=== PATIENT | female | born 1950 | race Caucasian/White ===

== ENCOUNTER 2022-01-16 01:36 | Outpatient (CLI) | payer MEDICARE, SELFPAY ==
[2022-01-16 14:28] LABS: Absolute Basophil Count 0.02 10^3/uL (0.0-0.2); Absolute Eosinophil Count 0.03 10^3/uL (0.0-0.7); Absolute Neutrophil Count 8.17 10^3/uL (1.2-6.7); Basophils % 0.2; Eosinophils % 0.3; HCT 23.6 % (36.0-46.0); HGB 7.5 g/dL (11.2-15.7); Immature Grans % 0.9; Lymphocytes % 16.3; MCH 29.4 pg (27.0-33.0); MCHC 31.8 % (32.0-36.0); MCV 93 fL (80-95); MPV 9.4 fL (8.0-11.0); Monocytes % 8.2; Neutrophils % 74.1; Platelet Count 254 10^3/uL (130-400); RBC 2.55 10^6/uL (3.93-5.22); RDW 16.2 % (11.7-14.6); RDW-SD 55.1 fL; WBC 11.02 10^3/uL (4.4-10.8)
[2022-01-16 14:45] LABS: Diff Comment Diff Reviewed; RBC Morphology Normal
== END 2022-01-16 01:37 | disposition home or self-care (01) ==
PROVIDERS: Visit Provider Nurse Practitioner Adult Health
DX: C90.00 Multiple myeloma not having achieved remission (principal)
CPT/HCPCS: 36415; 85025

== ENCOUNTER 2022-01-29 03:52 | Outpatient (CLI) | payer MEDICARE, SELFPAY ==
[2022-01-29 10:17] LABS: Abs Immature Grans 0.06 10^3/uL (0.0-0.06); Absolute Basophil Count 0.03 10^3/uL (0.0-0.2); Absolute Eosinophil Count 0.15 10^3/uL (0.0-0.7); Absolute Lymphocyte Count 0.95 10^3/uL (1.2-3.4); Absolute Monocyte Count 0.77 10^3/uL (0.1-0.8); Absolute Neutrophil Count 5.88 10^3/uL (1.2-6.7); Basophils % 0.4; Eosinophils % 1.9; Immature Grans % 0.8; Lymphocytes % 12.1; MCH 30.2 pg (27.0-33.0); MCHC 32.5 % (32.0-36.0); MCV 93 fL (80-95); MPV 9.2 fL (8.0-11.0); Monocytes % 9.8; RBC 2.15 10^6/uL (3.93-5.22); RDW 15.2 % (11.7-14.6); RDW-SD 51.3 fL; WBC 7.84 10^3/uL (4.4-10.8)
[2022-01-29 10:47] LABS: Platelet Count 281 10^3/uL (130-400)
[2022-01-29 10:48] LABS: Basophilic Stippling Present; Diff Comment Diff Reviewed; Hypochromasia 3+
[2022-01-29 10:50] LABS: HGB 6.5 g/dL (11.2-15.7)
== END 2022-01-29 03:53 | disposition home or self-care (01) ==
LOC: LBO 03:52
PROVIDERS: Visit Provider Internal Medicine Hematology & Oncology
DX: C90.00 Multiple myeloma not having achieved remission (principal)
CPT/HCPCS: 36415; 85025

== ENCOUNTER 2022-02-05 03:17 | Outpatient (CLI) | payer MEDICARE, SELFPAY | END 2022-02-05 03:18 | disposition home or self-care (01) | LOC: LBO 03:17 | PROVIDERS: Visit Provider Internal Medicine Hematology & Oncology | DX: R69 Illness, unspecified (principal) ==

== ENCOUNTER 2022-02-12 02:23 | Outpatient (CLI) | payer MEDICARE, SELFPAY ==
[2022-02-12 10:37] LABS: Abs Immature Grans 0.36 10^3/uL (0.0-0.06); Absolute Basophil Count 0.05 10^3/uL (0.0-0.2); Absolute Monocyte Count 0.48 10^3/uL (0.1-0.8); Absolute Neutrophil Count 5.33 10^3/uL (1.2-6.7); Basophils % 0.7; Eosinophils % 2.7; HCT 29.2 % (36.0-46.0); HGB 9.2 g/dL (11.2-15.7); Immature Grans % 4.9; Lymphocytes % 13.5; MCH 30.4 pg (27.0-33.0); MCHC 31.5 % (32.0-36.0); MCV 96 fL (80-95); MPV 10.2 fL (8.0-11.0); Monocytes % 6.5; Neutrophils % 71.7; Platelet Count 218 10^3/uL (130-400); RBC 3.03 10^6/uL (3.93-5.22); RDW 14.4 % (11.7-14.6); RDW-SD 50.5 fL; WBC 7.42 10^3/uL (4.4-10.8)
== END 2022-02-12 02:24 | disposition home or self-care (01) ==
LOC: LBO 02:23
PROVIDERS: Nurse Practitioner Adult Health; Visit Provider Internal Medicine Hematology & Oncology
DX: C90.00 Multiple myeloma not having achieved remission (principal)
CPT/HCPCS: 36415; 85025

== ENCOUNTER 2022-02-26 02:19 | Outpatient (CLI) | payer MEDICARE, SELFPAY ==
[2022-02-26 10:39] LABS: Abs Immature Grans 0.03 10^3/uL (0.0-0.06); Absolute Basophil Count 0.05 10^3/uL (0.0-0.2); Absolute Eosinophil Count 0.17 10^3/uL (0.0-0.7); Absolute Lymphocyte Count 1.13 10^3/uL (1.2-3.4); Absolute Monocyte Count 0.79 10^3/uL (0.1-0.8); Absolute Neutrophil Count 2.76 10^3/uL (1.2-6.7); Eosinophils % 3.4; HCT 25.6 % (36.0-46.0); HGB 8.3 g/dL (11.2-15.7); Immature Grans % 0.6; Lymphocytes % 22.9; MCH 31.2 pg (27.0-33.0); MCHC 32.4 % (32.0-36.0); MCV 96 fL (80-95); MPV 9.7 fL (8.0-11.0); Neutrophils % 56.1; Platelet Count 284 10^3/uL (130-400); RBC 2.66 10^6/uL (3.93-5.22); RDW-SD 52.2 fL; WBC 4.93 10^3/uL (4.4-10.8)
[2022-02-26 11:16] LABS: ALT 62 U/L (14-59); AST 23 U/L (15-37); Albumin 3.5 g/dL (3.4-5.0); Alkaline Phosphatase 122 U/L (46-116); Anion Gap 6.7 mmol/L (3-11); BUN 18 mg/dL (7-18); Bilirubin, Total 0.3 mg/dL (0.2-1.0); CO2 28.3 mmol/L (21.0-32.0); CREATININE 1.2 mg/dL (0.55-1.02); Calcium 8.7 mg/dL (8.5-10.1); Chloride 101 mmol/L (98-107); Estimated GFR 44.04 (mL/min/1.73m2); Glucose 95 mg/dL (74-106); Potassium 4.2 mmol/L (3.5-5.1); Sodium 136 mmol/L (136-145); Total Protein 6.7 g/dL (6.4-8.2)
[2022-02-27 09:31] LABS: IgA 398 mg/dL (85-499); IgG 323 mg/dL (610-1,616); IgM 48 mg/dL (35-242); Kappa Free Light Chain 18.32 mg/dL (0.33-1.94); Lambda Free Light Chain 1.37 mg/dL (0.57-2.63)
[2022-02-27 16:16] LABS: Albumin 60.5 % (55.8-66.1); Albumin g/dL 3.7 g/dL (3.6-5.2); Comment (See Note); Total Protein 6.1 g/dL (6.3-8.2)
[2022-03-04 10:31] LABS: Immunotyping, Serum (See Note)
== END 2022-02-26 02:20 | disposition home or self-care (01) ==
LOC: LBO 02:19
PROVIDERS: Visit Provider Internal Medicine Hematology & Oncology
DX: C90.00 Multiple myeloma not having achieved remission (principal)
CPT/HCPCS: 36415; 80053; 82784; 83883; 84165; 85025; 86320

== ENCOUNTER 2022-03-12 10:34 | Outpatient (CLI) | payer MEDICARE, SELFPAY ==
[2022-03-12 10:48] LABS: Abs Immature Grans 0.02 10^3/uL (0.0-0.06); Absolute Basophil Count 0.07 10^3/uL (0.0-0.2); Absolute Eosinophil Count 0.44 10^3/uL (0.0-0.7); Absolute Lymphocyte Count 0.77 10^3/uL (1.2-3.4); Absolute Monocyte Count 0.37 10^3/uL (0.1-0.8); Absolute Neutrophil Count 4.36 10^3/uL (1.2-6.7); Basophils % 1.2; Eosinophils % 7.3; HCT 32.5 % (36.0-46.0); HGB 10.4 g/dL (11.2-15.7); Immature Grans % 0.3; Lymphocytes % 12.8; MCH 30.9 pg (27.0-33.0); MCV 96 fL (80-95); MPV 10.3 fL (8.0-11.0); Monocytes % 6.1; Neutrophils % 72.3; Platelet Count 274 10^3/uL (130-400); RBC 3.37 10^6/uL (3.93-5.22); RDW 15.9 % (11.7-14.6); RDW-SD 56.8 fL; WBC 6.03 10^3/uL (4.4-10.8)
== END 2022-03-12 10:35 | disposition home or self-care (01) ==
LOC: LBO 10:35
PROVIDERS: Visit Provider Nurse Practitioner Adult Health
DX: C90.00 Multiple myeloma not having achieved remission (principal)
CPT/HCPCS: 36415; 85025

== ENCOUNTER 2022-03-19 02:51 | Outpatient (CLI) | payer MEDICARE, SELFPAY ==
[2022-03-19 11:09] LABS: Abs Immature Grans 0.02 10^3/uL (0.0-0.06); Absolute Basophil Count 0.06 10^3/uL (0.0-0.2); Absolute Eosinophil Count 0.29 10^3/uL (0.0-0.7); Absolute Lymphocyte Count 0.64 10^3/uL (1.2-3.4); Absolute Monocyte Count 0.37 10^3/uL (0.1-0.8); Absolute Neutrophil Count 2.19 10^3/uL (1.2-6.7); Basophils % 1.7; Eosinophils % 8.1; HCT 31.6 % (36.0-46.0); HGB 9.8 g/dL (11.2-15.7); Immature Grans % 0.6; Lymphocytes % 17.9; MCH 29.9 pg (27.0-33.0); MCV 96 fL (80-95); MPV 11.4 fL (8.0-11.0); Monocytes % 10.4; Neutrophils % 61.3; Platelet Count 195 10^3/uL (130-400); RBC 3.28 10^6/uL (3.93-5.22); RDW 15.6 % (11.7-14.6); RDW-SD 55.1 fL; WBC 3.57 10^3/uL (4.4-10.8)
[2022-03-19 11:23] LABS: ALT 24 U/L (14-59); AST 15 U/L (15-37); Albumin 3.3 g/dL (3.4-5.0); Alkaline Phosphatase 107 U/L (46-116); Anion Gap 6.1 mmol/L (3-11); BUN 19 mg/dL (7-18); Bilirubin, Total 0.4 mg/dL (0.2-1.0); CO2 26.9 mmol/L (21.0-32.0); Calcium 8.1 mg/dL (8.5-10.1); Chloride 102 mmol/L (98-107); Glucose 80 mg/dL (74-106); Potassium 3.9 mmol/L (3.5-5.1); Sodium 135 mmol/L (136-145); Total Protein 6.2 g/dL (6.4-8.2)
[2022-03-20 09:13] LABS: IgA 307 mg/dL (85-499); IgG 281 mg/dL (610-1,616); IgM 34 mg/dL (35-242); Kappa Free Light Chain 15.13 mg/dL (0.33-1.94); Lambda Free Light Chain 1.15 mg/dL (0.57-2.63)
[2022-03-20 11:50] LABS: Albumin 63.6 % (55.8-66.1); Albumin g/dL 3.6 g/dL (3.6-5.2); Comment (See Note); Monoclonal Spike 4.4 % (None Seen); Monoclonal Spike g/dL 0.2 g/dL (None Seen); Total Protein 5.6 g/dL (6.3-8.2)
== END 2022-03-19 02:52 | disposition home or self-care (01) ==
PROVIDERS: Visit Provider Nurse Practitioner Adult Health
DX: C90.00 Multiple myeloma not having achieved remission (principal)
CPT/HCPCS: 36415; 80053; 82784; 83883; 84165; 85025

== ENCOUNTER 2022-03-26 01:53 | Outpatient (CLI) | payer MEDICARE, SELFPAY ==
[2022-03-26 08:34] LABS: Abs Immature Grans 0.01 10^3/uL (0.0-0.06); Absolute Eosinophil Count 0.09 10^3/uL (0.0-0.7); Absolute Lymphocyte Count 1.15 10^3/uL (1.2-3.4); Absolute Monocyte Count 0.62 10^3/uL (0.1-0.8); Absolute Neutrophil Count 2.09 10^3/uL (1.2-6.7); Basophils % 2.5; Eosinophils % 2.2; HCT 33.7 % (36.0-46.0); HGB 10.7 g/dL (11.2-15.7); Immature Grans % 0.2; Lymphocytes % 28.3; MCH 30.1 pg (27.0-33.0); MCHC 31.8 % (32.0-36.0); MCV 95 fL (80-95); MPV 9.1 fL (8.0-11.0); Monocytes % 15.3; Neutrophils % 51.5; Platelet Count 343 10^3/uL (130-400); RBC 3.56 10^6/uL (3.93-5.22); RDW 14.9 % (11.7-14.6); RDW-SD 52.3 fL; WBC 4.06 10^3/uL (4.4-10.8)
[2022-03-26 08:49] LABS: ALT 23 U/L (14-59); AST 19 U/L (15-37); Albumin 3.6 g/dL (3.4-5.0); Alkaline Phosphatase 117 U/L (46-116); Anion Gap 6.5 mmol/L (3-11); BUN 19 mg/dL (7-18); Bilirubin, Total 0.3 mg/dL (0.2-1.0); CO2 29.5 mmol/L (21.0-32.0); CREATININE 1.1 mg/dL (0.55-1.02); Calcium 8.9 mg/dL (8.5-10.1); Chloride 102 mmol/L (98-107); Estimated GFR 48.55 (mL/min/1.73m2); Glucose 80 mg/dL (74-106); Potassium 4.1 mmol/L (3.5-5.1); Sodium 138 mmol/L (136-145); Total Protein 6.5 g/dL (6.4-8.2)
[2022-03-27 09:16] LABS: IgA 368 mg/dL (85-499); IgG 329 mg/dL (610-1,616); IgM 65 mg/dL (35-242); Kappa Free Light Chain 18.55 mg/dL (0.33-1.94); Lambda Free Light Chain 1.04 mg/dL (0.57-2.63)
[2022-03-27 13:08] LABS: Albumin 62.7 % (55.8-66.1); Albumin g/dL 3.7 g/dL (3.6-5.2); Comment (See Note); Total Protein 5.9 g/dL (6.3-8.2)
== END 2022-03-26 01:54 | disposition home or self-care (01) ==
LOC: LBO 01:53
PROVIDERS: Visit Provider Internal Medicine Hematology & Oncology
DX: C90.00 Multiple myeloma not having achieved remission (principal)
CPT/HCPCS: 36415; 80053; 82784; 83883; 84165; 85025

== ENCOUNTER 2022-04-02 04:05 | Outpatient (CLI) | payer MEDICARE, SELFPAY ==
[2022-04-02 10:30] LABS: Abs Immature Grans 0.04 10^3/uL (0.0-0.06); Absolute Basophil Count 0.07 10^3/uL (0.0-0.2); Absolute Lymphocyte Count 1.01 10^3/uL (1.2-3.4); Absolute Monocyte Count 0.34 10^3/uL (0.1-0.8); Absolute Neutrophil Count 3.53 10^3/uL (1.2-6.7); Basophils % 1.3; Eosinophils % 3.9; HCT 31.1 % (36.0-46.0); Immature Grans % 0.8; Lymphocytes % 19.5; MCH 30.4 pg (27.0-33.0); MCHC 32.2 % (32.0-36.0); MCV 95 fL (80-95); MPV 10.9 fL (8.0-11.0); Monocytes % 6.6; Neutrophils % 67.9; Platelet Count 256 10^3/uL (130-400); RBC 3.29 10^6/uL (3.93-5.22); RDW 15.5 % (11.7-14.6); RDW-SD 53.8 fL; WBC 5.19 10^3/uL (4.4-10.8)
[2022-04-02 10:45] LABS: ALT 23 U/L (14-59); AST 16 U/L (15-37); Albumin 3.3 g/dL (3.4-5.0); Alkaline Phosphatase 102 U/L (46-116); Anion Gap 7.7 mmol/L (3-11); BUN 19 mg/dL (7-18); Bilirubin, Total 0.3 mg/dL (0.2-1.0); CO2 28.3 mmol/L (21.0-32.0); CREATININE 1.1 mg/dL (0.55-1.02); Calcium 8.5 mg/dL (8.5-10.1); Chloride 102 mmol/L (98-107); Estimated GFR 48.55 (mL/min/1.73m2); Glucose 85 mg/dL (74-106); Sodium 138 mmol/L (136-145); Total Protein 6.6 g/dL (6.4-8.2)
[2022-04-03 09:45] LABS: IgA 351 mg/dL (85-499); IgG 310 mg/dL (610-1,616); IgM 49 mg/dL (35-242); Kappa Free Light Chain 17.82 mg/dL (0.33-1.94); Lambda Free Light Chain 0.99 mg/dL (0.57-2.63)
[2022-04-03 13:57] LABS: Albumin 60.5 % (55.8-66.1); Albumin g/dL 3.6 g/dL (3.6-5.2); Comment (See Note)
[2022-04-03 14:47] LABS: Immunotyping, Serum (See Note)
== END 2022-04-02 04:06 | disposition home or self-care (01) ==
LOC: LBO 04:06
PROVIDERS: Visit Provider Internal Medicine Hematology & Oncology
DX: C90.00 Multiple myeloma not having achieved remission (principal)
CPT/HCPCS: 36415; 80053; 82784; 83883; 84165; 85025; 86320

== ENCOUNTER 2022-04-09 10:06 | Outpatient (CLI) | payer MEDICARE, SELFPAY ==
[2022-04-09 10:25] LABS: Abs Immature Grans 0.03 10^3/uL (0.0-0.06); Absolute Basophil Count 0.08 10^3/uL (0.0-0.2); Absolute Eosinophil Count 0.18 10^3/uL (0.0-0.7); Absolute Lymphocyte Count 0.88 10^3/uL (1.2-3.4); Absolute Neutrophil Count 4.65 10^3/uL (1.2-6.7); Basophils % 1.2; Eosinophils % 2.8; HCT 31.5 % (36.0-46.0); Immature Grans % 0.5; Lymphocytes % 13.5; MCH 29.7 pg (27.0-33.0); MCHC 31.7 % (32.0-36.0); MCV 94 fL (80-95); MPV 10.5 fL (8.0-11.0); Monocytes % 10.7; Neutrophils % 71.3; Platelet Count 260 10^3/uL (130-400); RBC 3.37 10^6/uL (3.93-5.22); RDW 15.5 % (11.7-14.6); RDW-SD 53.6 fL; WBC 6.52 10^3/uL (4.4-10.8)
[2022-04-09 10:40] LABS: ALT 21 U/L (14-59); AST 12 U/L (15-37); Albumin 3.2 g/dL (3.4-5.0); Alkaline Phosphatase 88 U/L (46-116); Anion Gap 6.6 mmol/L (3-11); BUN 17 mg/dL (7-18); Bilirubin, Total 0.3 mg/dL (0.2-1.0); CO2 28.4 mmol/L (21.0-32.0); CREATININE 1.1 mg/dL (0.55-1.02); Calcium 8.2 mg/dL (8.5-10.1); Chloride 102 mmol/L (98-107); Estimated GFR 48.55 (mL/min/1.73m2); Glucose 82 mg/dL (74-106); Sodium 137 mmol/L (136-145); Total Protein 6.5 g/dL (6.4-8.2)
[2022-04-10 09:36] LABS: IgA 350 mg/dL (85-499); IgG 347 mg/dL (610-1,616); IgM 63 mg/dL (35-242); Kappa Free Light Chain 16.44 mg/dL (0.33-1.94); Lambda Free Light Chain 1.44 mg/dL (0.57-2.63)
[2022-04-10 11:59] LABS: Albumin g/dL 3.6 g/dL (3.6-5.2); Comment (See Note)
[2022-04-10 12:27] LABS: Immunotyping, Serum (See Note)
== END 2022-04-09 10:07 | disposition home or self-care (01) ==
LOC: LBO 10:06
PROVIDERS: Visit Provider Internal Medicine Hematology & Oncology
DX: C90.00 Multiple myeloma not having achieved remission (principal)
CPT/HCPCS: 36415; 80053; 82784; 83883; 84165; 85025; 86320

== ENCOUNTER 2022-04-16 04:50 | Outpatient (CLI) | payer MEDICARE, SELFPAY ==
[2022-04-16 12:03] LABS: Abs Immature Grans 0.03 10^3/uL (0.0-0.06); Absolute Basophil Count 0.08 10^3/uL (0.0-0.2); Absolute Eosinophil Count 0.39 10^3/uL (0.0-0.7); Absolute Lymphocyte Count 0.94 10^3/uL (1.2-3.4); Absolute Monocyte Count 0.47 10^3/uL (0.1-0.8); Absolute Neutrophil Count 3.65 10^3/uL (1.2-6.7); Basophils % 1.4; HCT 28.9 % (36.0-46.0); HGB 9.3 g/dL (11.2-15.7); Immature Grans % 0.5; Lymphocytes % 16.9; MCHC 32.2 % (32.0-36.0); MCV 93 fL (80-95); Monocytes % 8.5; Neutrophils % 65.7; Platelet Count 227 10^3/uL (130-400); RDW 15.9 % (11.7-14.6); RDW-SD 54.4 fL; WBC 5.56 10^3/uL (4.4-10.8)
[2022-04-16 12:26] LABS: ALT 24 U/L (14-59); AST 15 U/L (15-37); Albumin 3.3 g/dL (3.4-5.0); Alkaline Phosphatase 81 U/L (46-116); Anion Gap 7.8 mmol/L (3-11); BUN 20 mg/dL (7-18); Bilirubin, Total 0.4 mg/dL (0.2-1.0); CO2 28.2 mmol/L (21.0-32.0); CREATININE 1.1 mg/dL (0.55-1.02); Calcium 8.2 mg/dL (8.5-10.1); Chloride 100 mmol/L (98-107); Estimated GFR 52.73 (mL/min/1.73m2); Glucose 91 mg/dL (74-106); Sodium 136 mmol/L (136-145); Total Protein 6.6 g/dL (6.4-8.2)
[2022-04-17 10:02] LABS: IgA 348 mg/dL (85-499); IgG 366 mg/dL (610-1,616); IgM 76 mg/dL (35-242); Kappa Free Light Chain 15.92 mg/dL (0.33-1.94); Lambda Free Light Chain 1.52 mg/dL (0.57-2.63)
[2022-04-17 12:59] LABS: Albumin 60.6 % (55.8-66.1); Albumin g/dL 3.5 g/dL (3.6-5.2); Total Protein 5.8 g/dL (6.3-8.2)
== END 2022-04-16 04:51 | disposition home or self-care (01) ==
LOC: LBO 04:50
PROVIDERS: Visit Provider Internal Medicine Hematology & Oncology
DX: C90.00 Multiple myeloma not having achieved remission (principal)
CPT/HCPCS: 36415; 80053; 82784; 83883; 84165; 85025

== ENCOUNTER 2022-05-07 12:03 | Outpatient (CLI) | payer MEDICARE, SELFPAY ==
[2022-05-07 11:58] LABS: Abs Immature Grans 0.05 10^3/uL (0.0-0.06); Absolute Basophil Count 0.08 10^3/uL (0.0-0.2); Absolute Eosinophil Count 0.21 10^3/uL (0.0-0.7); Absolute Monocyte Count 0.42 10^3/uL (0.1-0.8); Absolute Neutrophil Count 5.16 10^3/uL (1.2-6.7); Basophils % 1.1; HCT 28.2 % (36.0-46.0); Immature Grans % 0.7; Lymphocytes % 15.7; MCH 29.9 pg (27.0-33.0); MCHC 31.9 % (32.0-36.0); MCV 94 fL (80-95); MPV 10.8 fL (8.0-11.0); Neutrophils % 73.5; Platelet Count 226 10^3/uL (130-400); RBC 3.01 10^6/uL (3.93-5.22); RDW 16.1 % (11.7-14.6); WBC 7.02 10^3/uL (4.4-10.8)
[2022-05-07 12:23] LABS: ALT 27 U/L (14-59); AST 16 U/L (15-37); Albumin 3.1 g/dL (3.4-5.0); Alkaline Phosphatase 99 U/L (46-116); Anion Gap 7.2 mmol/L (3-11); BUN 18 mg/dL (7-18); Bilirubin, Total 0.4 mg/dL (0.2-1.0); CO2 28.8 mmol/L (21.0-32.0); Calcium 8.7 mg/dL (8.5-10.1); Chloride 100 mmol/L (98-107); Estimated GFR 59.12 (mL/min/1.73m2); Glucose 90 mg/dL (74-106); Sodium 136 mmol/L (136-145); Total Protein 6.6 g/dL (6.4-8.2)
[2022-05-08 08:37] LABS: IgA 360 mg/dL (85-499); IgG 411 mg/dL (610-1,616); IgM 87 mg/dL (35-242); Kappa Free Light Chain 12.43 mg/dL (0.33-1.94); Lambda Free Light Chain 1.93 mg/dL (0.57-2.63)
[2022-05-08 12:45] LABS: Albumin 57.2 % (55.8-66.1); Albumin g/dL 3.4 g/dL (3.6-5.2); Comment (See Note); Total Protein 5.9 g/dL (6.3-8.2)
== END 2022-05-07 12:04 | disposition home or self-care (01) ==
LOC: LBO 12:05
PROVIDERS: Visit Provider Internal Medicine Hematology & Oncology
DX: C90.00 Multiple myeloma not having achieved remission (principal)
CPT/HCPCS: 36415; 80053; 82784; 83883; 84165; 85025

== ENCOUNTER → 2022-05-07 15:09 | Outpatient (CLI) | payer MEDICARE, SELFPAY ==
--- NOTE | 2022-05-07 | DI.US_ITS ---
Exam(s) US LOWER EXTREMITY VENOUS LT EXAM: US LOWER EXTREMITY VENOUS LT CLINICAL HISTORY: MULTIPLE MYELOMA C90.00 LEFT LEG EDEMA R22.42 R/O DVT. TECHNIQUE: Lower extremity venous ultrasound performed using grayscale, color-flow, and spectral Do ppler analysis. COMPARISON: No exams were available for comparison FINDINGS: The common femoral, femoral and popliteal veins demonstrate normal compressibility, augmentation, and color Doppler. The posterior tibial veins are patent. No saphenous vein thrombosis or other superfi cial venous thrombosis is seen. No hematoma or Dolan's cyst is seen. IMPRESSION: Negative lower extremity ultrasound. No evidence of DVT. DATA REPOSITORY:
== END ==
PROVIDERS: Visit Provider Nurse Practitioner Family
DX: R22.42 Localized swelling, mass and lump, left lower limb (principal); C90.00 Multiple myeloma not having achieved remission
CPT/HCPCS: 36415; 80053; 82784; 83883; 84165; 85025; 93971

== ENCOUNTER 2022-05-21 02:25 | Outpatient (CLI) | payer MEDICARE, SELFPAY ==
[2022-05-21 08:56] LABS: Abs Immature Grans 0.02 10^3/uL (0.0-0.06); Absolute Basophil Count 0.12 10^3/uL (0.0-0.2); Absolute Eosinophil Count 0.07 10^3/uL (0.0-0.7); Absolute Lymphocyte Count 0.93 10^3/uL (1.2-3.4); Absolute Neutrophil Count 4.61 10^3/uL (1.2-6.7); Basophils % 1.9; Eosinophils % 1.1; HCT 29.5 % (36.0-46.0); HGB 9.4 g/dL (11.2-15.7); Immature Grans % 0.3; Lymphocytes % 14.9; MCH 29.7 pg (27.0-33.0); MCHC 31.9 % (32.0-36.0); MCV 93 fL (80-95); MPV 9.7 fL (8.0-11.0); Neutrophils % 73.8; Platelet Count 340 10^3/uL (130-400); RBC 3.17 10^6/uL (3.93-5.22); RDW 16.1 % (11.7-14.6); RDW-SD 55.4 fL; WBC 6.25 10^3/uL (4.4-10.8)
[2022-05-21 09:05] LABS: ALT 27 U/L (14-59); AST 18 U/L (15-37); Albumin 3.4 g/dL (3.4-5.0); Alkaline Phosphatase 89 U/L (46-116); Anion Gap 8.9 mmol/L (3-11); BUN 21 mg/dL (7-18); Bilirubin, Total 0.3 mg/dL (0.2-1.0); CO2 28.1 mmol/L (21.0-32.0); CREATININE 1.2 mg/dL (0.55-1.02); Chloride 101 mmol/L (98-107); Glucose 100 mg/dL (74-106); Potassium 3.7 mmol/L (3.5-5.1); Sodium 138 mmol/L (136-145)
[2022-05-22 09:21] LABS: IgA 415 mg/dL (85-499); IgG 519 mg/dL (610-1,616); IgM 95 mg/dL (35-242); Kappa Free Light Chain 13.64 mg/dL (0.33-1.94); Lambda Free Light Chain 1.73 mg/dL (0.57-2.63)
[2022-05-22 11:59] LABS: Albumin 57.3 % (55.8-66.1); Albumin g/dL 3.6 g/dL (3.6-5.2); Comment (See Note); Total Protein 6.2 g/dL (6.3-8.2)
== END 2022-05-21 02:26 | disposition home or self-care (01) ==
LOC: LBO 02:25
PROVIDERS: Visit Provider Internal Medicine Hematology & Oncology
DX: C90.00 Multiple myeloma not having achieved remission (principal)
CPT/HCPCS: 36415; 80053; 82784; 83883; 84165; 85025

== ENCOUNTER 2022-06-04 11:02 | Outpatient (CLI) | payer MEDICARE, SELFPAY ==
[2022-06-04 11:19] LABS: Abs Immature Grans 0.04 10^3/uL (0.0-0.06); Absolute Basophil Count 0.06 10^3/uL (0.0-0.2); Absolute Eosinophil Count 0.26 10^3/uL (0.0-0.7); Absolute Lymphocyte Count 0.98 10^3/uL (1.2-3.4); Absolute Monocyte Count 0.62 10^3/uL (0.1-0.8); Absolute Neutrophil Count 5.13 10^3/uL (1.2-6.7); Basophils % 0.8; Eosinophils % 3.7; HCT 28.9 % (36.0-46.0); HGB 9.3 g/dL (11.2-15.7); Immature Grans % 0.6; Lymphocytes % 13.8; MCH 29.7 pg (27.0-33.0); MCHC 32.2 % (32.0-36.0); MCV 92 fL (80-95); MPV 11.1 fL (8.0-11.0); Monocytes % 8.7; Neutrophils % 72.4; Platelet Count 227 10^3/uL (130-400); RBC 3.13 10^6/uL (3.93-5.22); RDW 16.8 % (11.7-14.6); RDW-SD 56.9 fL; WBC 7.09 10^3/uL (4.4-10.8)
[2022-06-04 11:33] LABS: ALT 22 U/L (14-59); AST 13 U/L (15-37); Albumin 3.3 g/dL (3.4-5.0); Alkaline Phosphatase 82 U/L (46-116); Anion Gap 9.4 mmol/L (3-11); BUN 26 mg/dL (7-18); Bilirubin, Total 0.4 mg/dL (0.2-1.0); CO2 28.6 mmol/L (21.0-32.0); CREATININE 1.2 mg/dL (0.55-1.02); Calcium 9.1 mg/dL (8.5-10.1); Chloride 100 mmol/L (98-107); Glucose 94 mg/dL (74-106); Potassium 3.8 mmol/L (3.5-5.1); Sodium 138 mmol/L (136-145); Total Protein 6.9 g/dL (6.4-8.2)
[2022-06-05 09:09] LABS: IgA 364 mg/dL (85-499); IgG 524 mg/dL (610-1,616); IgM 88 mg/dL (35-242); Kappa Free Light Chain 14.98 mg/dL (0.33-1.94); Lambda Free Light Chain 2.04 mg/dL (0.57-2.63)
[2022-06-05 12:55] LABS: Albumin 56.6 % (55.8-66.1); Albumin g/dL 3.3 g/dL (3.6-5.2); Comment (See Note); Total Protein 5.8 g/dL (6.3-8.2)
== END 2022-06-04 11:03 | disposition home or self-care (01) ==
LOC: LBO 11:02
PROVIDERS: Visit Provider Internal Medicine Hematology & Oncology
DX: C90.00 Multiple myeloma not having achieved remission (principal)
CPT/HCPCS: 36415; 80053; 82784; 83883; 84165; 85025

== ENCOUNTER 2022-06-18 02:56 | Outpatient (CLI) | payer MEDICARE, SELFPAY ==
[2022-06-18 09:14] LABS: Abs Immature Grans 0.01 10^3/uL (0.0-0.06); Absolute Basophil Count 0.14 10^3/uL (0.0-0.2); Absolute Eosinophil Count 0.04 10^3/uL (0.0-0.7); Absolute Lymphocyte Count 1.06 10^3/uL (1.2-3.4); Absolute Monocyte Count 0.49 10^3/uL (0.1-0.8); Absolute Neutrophil Count 3.81 10^3/uL (1.2-6.7); Basophils % 2.5; Eosinophils % 0.7; HCT 28.9 % (36.0-46.0); HGB 9.3 g/dL (11.2-15.7); Immature Grans % 0.2; Lymphocytes % 19.1; MCH 30.1 pg (27.0-33.0); MCHC 32.2 % (32.0-36.0); MCV 94 fL (80-95); MPV 9.2 fL (8.0-11.0); Monocytes % 8.8; Neutrophils % 68.7; Platelet Count 352 10^3/uL (130-400); RBC 3.09 10^6/uL (3.93-5.22); RDW 17.5 % (11.7-14.6); RDW-SD 60.2 fL; WBC 5.55 10^3/uL (4.4-10.8)
[2022-06-18 09:32] LABS: ALT 35 U/L (14-59); AST 24 U/L (15-37); Albumin 3.5 g/dL (3.4-5.0); Alkaline Phosphatase 78 U/L (46-116); Anion Gap 3.3 mmol/L (3-11); BUN 23 mg/dL (7-18); Bilirubin, Total 0.4 mg/dL (0.2-1.0); CO2 28.7 mmol/L (21.0-32.0); CREATININE 1.2 mg/dL (0.55-1.02); Calcium 8.9 mg/dL (8.5-10.1); Chloride 102 mmol/L (98-107); Glucose 99 mg/dL (74-106); Potassium 3.4 mmol/L (3.5-5.1); Sodium 134 mmol/L (136-145); Total Protein 7.2 g/dL (6.4-8.2)
[2022-06-19 10:51] LABS: IgA 405 mg/dL (85-499); IgG 595 mg/dL (610-1,616); IgM 102 mg/dL (35-242); Kappa Free Light Chain 13.14 mg/dL (0.33-1.94); Lambda Free Light Chain 1.51 mg/dL (0.57-2.63)
[2022-06-19 13:53] LABS: Albumin 57.2 % (55.8-66.1); Albumin g/dL 3.6 g/dL (3.6-5.2); Comment (See Note); Total Protein 6.3 g/dL (6.3-8.2)
== END 2022-06-18 02:57 | disposition home or self-care (01) ==
LOC: LBO 02:57
PROVIDERS: Visit Provider Internal Medicine Hematology & Oncology
DX: C90.00 Multiple myeloma not having achieved remission (principal)
CPT/HCPCS: 36415; 80053; 82784; 83883; 84165; 85025

== ENCOUNTER 2022-07-16 03:48 | Outpatient (CLI) | payer MEDICARE, SELFPAY ==
[2022-07-16 09:47] LABS: Abs Immature Grans 0.02 10^3/uL (0.0-0.06); Absolute Basophil Count 0.14 10^3/uL (0.0-0.2); Absolute Eosinophil Count 0.09 10^3/uL (0.0-0.7); Absolute Lymphocyte Count 1.04 10^3/uL (1.2-3.4); Absolute Monocyte Count 0.56 10^3/uL (0.1-0.8); Absolute Neutrophil Count 3.84 10^3/uL (1.2-6.7); Basophils % 2.5; Eosinophils % 1.6; HCT 27.9 % (36.0-46.0); HGB 8.7 g/dL (11.2-15.7); Immature Grans % 0.4; Lymphocytes % 18.3; MCHC 31.2 % (32.0-36.0); MCV 96 fL (80-95); MPV 8.9 fL (8.0-11.0); Monocytes % 9.8; Neutrophils % 67.4; Platelet Count 351 10^3/uL (130-400); RDW 17.1 % (11.7-14.6); RDW-SD 59.7 fL; WBC 5.69 10^3/uL (4.4-10.8)
[2022-07-16 10:01] LABS: ALT 33 U/L (14-59); AST 23 U/L (15-37); Albumin 3.5 g/dL (3.4-5.0); Alkaline Phosphatase 74 U/L (46-116); Anion Gap 5.5 mmol/L (3-11); BUN 18 mg/dL (7-18); Bilirubin, Total 0.3 mg/dL (0.2-1.0); CO2 28.5 mmol/L (21.0-32.0); CREATININE 1.1 mg/dL (0.55-1.02); Calcium 8.9 mg/dL (8.5-10.1); Chloride 103 mmol/L (98-107); Estimated GFR 52.73 (mL/min/1.73m2); Glucose 88 mg/dL (74-106); Potassium 3.7 mmol/L (3.5-5.1); Sodium 137 mmol/L (136-145); Total Protein 7.1 g/dL (6.4-8.2)
[2022-07-17 11:06] LABS: IgA 452 mg/dL (85-499); IgG 638 mg/dL (610-1616); IgM 93 mg/dL (35-242); Kappa Free Light Chain 17.65 mg/dL (0.33-1.94)
[2022-07-17 14:02] LABS: Albumin 57.5 % (55.8-66.1); Albumin g/dL 3.7 g/dL (3.6-5.2); Comment (See Note); Total Protein 6.5 g/dL (6.3-8.2)
== END 2022-07-16 03:49 | disposition home or self-care (01) ==
LOC: LBO 03:48
PROVIDERS: Visit Provider Internal Medicine Hematology & Oncology
DX: C90.00 Multiple myeloma not having achieved remission (principal)
CPT/HCPCS: 36415; 80053; 82784; 83883; 84165; 85025

== ENCOUNTER 2022-08-13 02:24 | Outpatient (CLI) | payer MEDICARE, SELFPAY ==
[2022-08-13 08:50] LABS: Abs Immature Grans 0.01 10^3/uL (0.0-0.06); Absolute Basophil Count 0.11 10^3/uL (0.0-0.2); Absolute Eosinophil Count 0.06 10^3/uL (0.0-0.7); Absolute Lymphocyte Count 0.95 10^3/uL (1.2-3.4); Absolute Monocyte Count 0.47 10^3/uL (0.1-0.8); Absolute Neutrophil Count 3.59 10^3/uL (1.2-6.7); Basophils % 2.1; Eosinophils % 1.2; HCT 37.3 % (36.0-46.0); HGB 11.6 g/dL (11.2-15.7); Immature Grans % 0.2; Lymphocytes % 18.3; MCH 29.7 pg (27.0-33.0); MCHC 31.1 % (32.0-36.0); MCV 96 fL (80-95); Monocytes % 9.1; Neutrophils % 69.1; Platelet Count 392 10^3/uL (130-400); RDW 16.8 % (11.7-14.6); RDW-SD 59.2 fL; WBC 5.19 10^3/uL (4.4-10.8)
[2022-08-13 09:02] LABS: ALT 24 U/L (14-59); AST 21 U/L (15-37); Albumin 3.5 g/dL (3.4-5.0); Alkaline Phosphatase 72 U/L (46-116); Anion Gap 6.9 mmol/L (3-11); BUN 23 mg/dL (7-18); Bilirubin, Total 0.5 mg/dL (0.2-1.0); CO2 28.1 mmol/L (21.0-32.0); CREATININE 1.2 mg/dL (0.55-1.02); Calcium 8.9 mg/dL (8.5-10.1); Chloride 103 mmol/L (98-107); Glucose 94 mg/dL (74-106); Potassium 3.7 mmol/L (3.5-5.1); Sodium 138 mmol/L (136-145); Total Protein 7.3 g/dL (6.4-8.2)
[2022-08-14 09:10] LABS: IgA 461 mg/dL (85-499); IgG 590 mg/dL (610-1616); IgM 63 mg/dL (35-242); Kappa Free Light Chain 11.69 mg/dL (0.33-1.94); Lambda Free Light Chain 1.36 mg/dL (0.57-2.63)
[2022-08-14 13:14] LABS: Albumin 57.5 % (55.8-66.1); Albumin g/dL 3.7 g/dL (3.6-5.2); Comment (See Note); Total Protein 6.4 g/dL (6.3-8.2)
== END 2022-08-13 02:25 | disposition home or self-care (01) ==
LOC: LBO 02:25
PROVIDERS: Visit Provider Internal Medicine Hematology & Oncology
DX: C90.00 Multiple myeloma not having achieved remission (principal)
CPT/HCPCS: 36415; 80053; 82784; 83883; 84165; 85025

== ENCOUNTER 2022-09-10 08:58 | Outpatient (CLI) | payer MEDICARE, SELFPAY ==
[2022-09-10 08:12] LABS: Abs Immature Grans 0.01 10^3/uL (0.0-0.06); Absolute Basophil Count 0.11 10^3/uL (0.0-0.2); Absolute Eosinophil Count 0.09 10^3/uL (0.0-0.7); Absolute Lymphocyte Count 1.03 10^3/uL (1.2-3.4); Absolute Monocyte Count 0.47 10^3/uL (0.1-0.8); Basophils % 2.2; Eosinophils % 1.8; HCT 33.4 % (36.0-46.0); HGB 10.7 g/dL (11.2-15.7); Immature Grans % 0.2; MCH 29.4 pg (27.0-33.0); MCV 92 fL (80-95); MPV 9.3 fL (8.0-11.0); Monocytes % 9.6; Neutrophils % 65.2; Platelet Count 282 10^3/uL (130-400); RBC 3.64 10^6/uL (3.93-5.22); RDW 16.2 % (11.7-14.6); RDW-SD 55.1 fL; WBC 4.91 10^3/uL (4.4-10.8)
[2022-09-10 08:28] LABS: ALT 22 U/L (14-59); AST 21 U/L (15-37); Albumin 3.5 g/dL (3.4-5.0); Alkaline Phosphatase 65 U/L (46-116); Anion Gap 8.1 mmol/L (3-11); BUN 24 mg/dL (7-18); Bilirubin, Total 0.3 mg/dL (0.2-1.0); CO2 27.9 mmol/L (21.0-32.0); CREATININE 1.3 mg/dL (0.55-1.02); Chloride 103 mmol/L (98-107); Estimated GFR 43.15 (mL/min/1.73m2); Glucose 79 mg/dL (74-106); Potassium 3.5 mmol/L (3.5-5.1); Sodium 139 mmol/L (136-145); Total Protein 6.9 g/dL (6.4-8.2)
[2022-09-11 10:17] LABS: IgA 482 mg/dL (85-499); IgG 666 mg/dL (610-1616); IgM 75 mg/dL (35-242); Kappa Free Light Chain 19.18 mg/dL (0.33-1.94); Lambda Free Light Chain 1.62 mg/dL (0.57-2.63)
[2022-09-14 16:34] LABS: Albumin 57.7 % (55.8-66.1); Albumin g/dL 3.7 g/dL (3.6-5.2); Comment (See Note); Total Protein 6.4 g/dL (6.3-8.2)
== END 2022-09-10 08:59 | disposition home or self-care (01) ==
LOC: LBO 08:58
PROVIDERS: Visit Provider Internal Medicine Hematology & Oncology
DX: C90.00 Multiple myeloma not having achieved remission (principal)
CPT/HCPCS: 36415; 80053; 82784; 83883; 84165; 85025

== ENCOUNTER 2022-10-08 12:46 | Outpatient (CLI) | payer MEDICARE, SELFPAY ==
[2022-10-08 09:11] LABS: Abs Immature Grans 0.03 10^3/uL (0.0-0.06); Absolute Basophil Count 0.08 10^3/uL (0.0-0.2); Absolute Eosinophil Count 0.17 10^3/uL (0.0-0.7); Absolute Lymphocyte Count 1.46 10^3/uL (1.2-3.4); Absolute Monocyte Count 0.52 10^3/uL (0.1-0.8); Absolute Neutrophil Count 5.14 10^3/uL (1.2-6.7); Basophils % 1.1; Eosinophils % 2.3; HCT 36.9 % (36.0-46.0); HGB 11.5 g/dL (11.2-15.7); Immature Grans % 0.4; Lymphocytes % 19.7; MCH 28.3 pg (27.0-33.0); MCHC 31.2 % (32.0-36.0); MCV 91 fL (80-95); MPV 9.4 fL (8.0-11.0); Neutrophils % 69.5; Platelet Count 372 10^3/uL (130-400); RBC 4.06 10^6/uL (3.93-5.22); RDW 16.5 % (11.7-14.6); RDW-SD 55.8 fL
[2022-10-08 09:50] LABS: ALT 18 U/L (14-59); AST 16 U/L (15-37); Albumin 3.5 g/dL (3.4-5.0); Alkaline Phosphatase 77 U/L (46-116); Anion Gap 8.3 mmol/L (3-11); BUN 27 mg/dL (7-18); Bilirubin, Total 0.4 mg/dL (0.2-1.0); CO2 28.7 mmol/L (21.0-32.0); CREATININE 1.3 mg/dL (0.55-1.02); Calcium 9.4 mg/dL (8.5-10.1); Chloride 102 mmol/L (98-107); Estimated GFR 43.15 (mL/min/1.73m2); Glucose 95 mg/dL (74-106); Potassium 3.7 mmol/L (3.5-5.1); Sodium 139 mmol/L (136-145); Total Protein 7.4 g/dL (6.4-8.2)
[2022-10-09 11:15] LABS: IgA 562 mg/dL (85-499); IgG 702 mg/dL (610-1616); IgM 92 mg/dL (35-242); Kappa Free Light Chain 19.66 mg/dL (0.33-1.94); Lambda Free Light Chain 1.44 mg/dL (0.57-2.63)
[2022-10-09 14:40] LABS: Albumin 55.2 % (55.8-66.1); Albumin g/dL 3.8 g/dL (3.6-5.2); Comment (See Note); Total Protein 6.9 g/dL (6.3-8.2)
[2022-10-09 14:48] LABS: Immunotyping, Serum (See Note)
== END 2022-10-08 12:47 | disposition home or self-care (01) ==
LOC: LBO 12:47
PROVIDERS: Visit Provider Internal Medicine Hematology & Oncology
DX: C90.00 Multiple myeloma not having achieved remission (principal)
CPT/HCPCS: 36415; 80053; 82784; 83883; 84165; 85025; 86320

== ENCOUNTER 2022-11-05 04:20 | Outpatient (CLI) | payer MEDICARE, SELFPAY ==
[2022-11-05 09:12] LABS: Abs Immature Grans 0.02 10^3/uL (0.0-0.06); Absolute Basophil Count 0.11 10^3/uL (0.0-0.2); Absolute Eosinophil Count 0.14 10^3/uL (0.0-0.7); Absolute Lymphocyte Count 1.41 10^3/uL (1.2-3.4); Absolute Monocyte Count 0.57 10^3/uL (0.1-0.8); Absolute Neutrophil Count 2.99 10^3/uL (1.2-6.7); Basophils % 2.1; Eosinophils % 2.7; HCT 32.1 % (36.0-46.0); HGB 10.3 g/dL (11.2-15.7); Immature Grans % 0.4; Lymphocytes % 26.9; MCHC 32.1 % (32.0-36.0); MCV 90 fL (80-95); MPV 8.5 fL (8.0-11.0); Monocytes % 10.9; Platelet Count 265 10^3/uL (130-400); RBC 3.55 10^6/uL (3.93-5.22); RDW 17.9 % (11.7-14.6); RDW-SD 60.1 fL; WBC 5.24 10^3/uL (4.4-10.8)
[2022-11-05 09:45] LABS: ALT 26 U/L (14-59); AST 21 U/L (15-37); Albumin 3.4 g/dL (3.4-5.0); Alkaline Phosphatase 63 U/L (46-116); Anion Gap 5.6 mmol/L (3-11); BUN 23 mg/dL (7-18); Bilirubin, Total 0.3 mg/dL (0.2-1.0); CO2 29.4 mmol/L (21.0-32.0); CREATININE 1.4 mg/dL (0.55-1.02); Calcium 8.9 mg/dL (8.5-10.1); Chloride 107 mmol/L (98-107); Estimated GFR 39.48 (mL/min/1.73m2); Glucose 77 mg/dL (74-106); Potassium 4.1 mmol/L (3.5-5.1); Sodium 142 mmol/L (136-145); Total Protein 6.9 g/dL (6.4-8.2)
[2022-11-06 10:18] LABS: IgA 496 mg/dL (85-499); IgG 717 mg/dL (610-1616); IgM 106 mg/dL (35-242); Kappa Free Light Chain 19.06 mg/dL (0.33-1.94); Lambda Free Light Chain 1.59 mg/dL (0.57-2.63)
[2022-11-06 12:41] LABS: Albumin 56.6 % (55.8-66.1); Albumin g/dL 3.7 g/dL (3.6-5.2); Comment (See Note); Total Protein 6.5 g/dL (6.3-8.2)
[2022-11-06 14:49] LABS: Immunotyping, Serum (See Note)
== END 2022-11-05 04:21 | disposition home or self-care (01) ==
LOC: LBO 04:20
PROVIDERS: Visit Provider Internal Medicine Hematology & Oncology
DX: C90.00 Multiple myeloma not having achieved remission (principal)
CPT/HCPCS: 36415; 80053; 82784; 83883; 84165; 85025; 86320

== ENCOUNTER 2022-12-03 03:36 | Outpatient (CLI) | payer MEDICARE, SELFPAY ==
[2022-12-03 09:05] LABS: Abs Immature Grans 0.02 10^3/uL (0.0-0.06); Absolute Eosinophil Count 0.06 10^3/uL (0.0-0.7); Absolute Monocyte Count 0.58 10^3/uL (0.1-0.8); Basophils % 1.8; Eosinophils % 1.1; HCT 32.7 % (36.0-46.0); HGB 10.4 g/dL (11.2-15.7); Immature Grans % 0.4; Lymphocytes % 17.7; MCH 29.5 pg (27.0-33.0); MCHC 31.8 % (32.0-36.0); MCV 93 fL (80-95); MPV 9.4 fL (8.0-11.0); Monocytes % 10.2; Neutrophils % 68.8; Platelet Count 356 10^3/uL (130-400); RBC 3.52 10^6/uL (3.93-5.22); RDW 17.6 % (11.7-14.6); RDW-SD 60.4 fL; WBC 5.66 10^3/uL (4.4-10.8)
[2022-12-03 09:20] LABS: ALT 27 U/L (14-59); AST 20 U/L (15-37); Albumin 3.5 g/dL (3.4-5.0); Alkaline Phosphatase 67 U/L (46-116); BUN 24 mg/dL (7-18); Bilirubin, Total 0.4 mg/dL (0.2-1.0); CREATININE 1.4 mg/dL (0.55-1.02); Calcium 8.6 mg/dL (8.5-10.1); Chloride 102 mmol/L (98-107); Estimated GFR 39.48 (mL/min/1.73m2); Glucose 100 mg/dL (74-106); Potassium 3.6 mmol/L (3.5-5.1); Sodium 138 mmol/L (136-145); Total Protein 7.3 g/dL (6.4-8.2)
[2022-12-04 09:22] LABS: IgA 535 mg/dL (85-499); IgG 657 mg/dL (610-1616); IgM 67 mg/dL (35-242); Kappa Free Light Chain 17.99 mg/dL (0.33-1.94); Lambda Free Light Chain 1.53 mg/dL (0.57-2.63)
[2022-12-04 12:43] LABS: Albumin 55.6 % (55.8-66.1); Albumin g/dL 3.7 g/dL (3.6-5.2); Comment (See Note); Total Protein 6.6 g/dL (6.3-8.2)
== END 2022-12-03 03:37 | disposition home or self-care (01) ==
LOC: LBO 03:36
PROVIDERS: Visit Provider Internal Medicine Hematology & Oncology
DX: C90.00 Multiple myeloma not having achieved remission (principal)
CPT/HCPCS: 36415; 80053; 82784; 83883; 84165; 85025

== ENCOUNTER 2023-03-19 07:41 | Outpatient (CLI) | payer MEDICARE, SELFPAY ==
[2023-03-19 09:14] LABS: Abs Immature Grans 0.01 10^3/uL (0.0-0.06); Absolute Basophil Count 0.12 10^3/uL (0.0-0.2); Absolute Eosinophil Count 0.17 10^3/uL (0.0-0.7); Absolute Monocyte Count 0.58 10^3/uL (0.1-0.8); Absolute Neutrophil Count 3.01 10^3/uL (1.2-6.7); Basophils % 2.3; Eosinophils % 3.3; HCT 33.3 % (36.0-46.0); HGB 10.8 g/dL (11.2-15.7); Immature Grans % 0.2; MCH 30.2 pg (27.0-33.0); MCHC 32.4 % (32.0-36.0); MCV 93 fL (80-95); MPV 9.4 fL (8.0-11.0); Monocytes % 11.2; Platelet Count 226 10^3/uL (130-400); RBC 3.58 10^6/uL (3.93-5.22); RDW 16.9 % (11.7-14.6); RDW-SD 57.7 fL; WBC 5.19 10^3/uL (4.4-10.8)
[2023-03-19 09:34] LABS: ALT 33 U/L (14-59); AST 28 U/L (15-37); Albumin 3.4 g/dL (3.4-5.0); Alkaline Phosphatase 68 U/L (46-116); Anion Gap 8.1 mmol/L (3-11); BUN 27 mg/dL (7-18); Bilirubin, Total 0.4 mg/dL (0.2-1.0); CO2 28.9 mmol/L (21.0-32.0); CREATININE 1.2 mg/dL (0.55-1.02); Calcium 9.1 mg/dL (8.5-10.1); Chloride 103 mmol/L (98-107); Estimated GFR 47.21 (mL/min/1.73m2); Glucose 72 mg/dL (74-106); Potassium 3.9 mmol/L (3.5-5.1); Sodium 140 mmol/L (136-145); Total Protein 7.3 g/dL (6.4-8.2)
[2023-03-22 10:08] LABS: IgA 656 mg/dL (85-499); IgG 800 mg/dL (610-1616); IgM 54 mg/dL (35-242); Kappa Free Light Chain 22.43 mg/dL (0.33-1.94); Lambda Free Light Chain 1.54 mg/dL (0.57-2.63)
[2023-03-22 12:34] LABS: Albumin 56.6 % (55.8-66.1); Comment (See Note)
== END 2023-03-19 07:42 | disposition home or self-care (01) ==
PROVIDERS: Visit Provider Internal Medicine Hematology & Oncology
DX: C90.00 Multiple myeloma not having achieved remission (principal)
CPT/HCPCS: 36415; 80053; 82784; 83883; 84165; 85025

== ENCOUNTER 2023-06-10 04:10 | Outpatient (CLI) | payer MEDICARE, SELFPAY ==
[2023-06-10 09:12] LABS: Abs Immature Grans 0.02 10^3/uL (0.0-0.06); Absolute Eosinophil Count 0.21 10^3/uL (0.0-0.7); Absolute Lymphocyte Count 1.14 10^3/uL (1.2-3.4); Absolute Monocyte Count 0.43 10^3/uL (0.1-0.8); Absolute Neutrophil Count 3.32 10^3/uL (1.2-6.7); Basophils % 1.9; HCT 31.2 % (36.0-46.0); Immature Grans % 0.4; Lymphocytes % 21.8; MCH 30.7 pg (27.0-33.0); MCHC 32.1 % (32.0-36.0); MCV 96 fL (80-95); MPV 8.5 fL (8.0-11.0); Monocytes % 8.2; Neutrophils % 63.7; Platelet Count 244 10^3/uL (130-400); RBC 3.26 10^6/uL (3.93-5.22); RDW 14.1 % (11.7-14.6); RDW-SD 49.3 fL; WBC 5.22 10^3/uL (4.4-10.8)
[2023-06-10 09:59] LABS: ALT 37 U/L (14-59); AST 25 U/L (15-37); Albumin 3.5 g/dL (3.4-5.0); Alkaline Phosphatase 60 U/L (46-116); Anion Gap 8.8 mmol/L (3-11); BUN 21 mg/dL (7-18); Bilirubin, Total 0.4 mg/dL (0.2-1.0); CO2 27.2 mmol/L (21.0-32.0); CREATININE 1.3 mg/dL (0.55-1.02); Calcium 9.3 mg/dL (8.5-10.1); Chloride 103 mmol/L (98-107); Estimated GFR 42.88 (mL/min/1.73m2); Glucose 116 mg/dL (74-106); Potassium 3.6 mmol/L (3.5-5.1); Sodium 139 mmol/L (136-145); Total Protein 7.5 g/dL (6.4-8.2); Vitamin B12 1445 pg/mL (193-986)
[2023-06-11 09:56] LABS: IgA 631 mg/dL (85-499); IgG 810 mg/dL (610-1616); IgM 49 mg/dL (35-242); Kappa Free Light Chain 26.56 mg/dL (0.33-1.94); Lambda Free Light Chain 1.52 mg/dL (0.57-2.63)
[2023-06-11 11:59] LABS: Albumin 54.3 % (55.8-66.1); Albumin g/dL 3.7 g/dL (3.6-5.2); Comment (See Note); Total Protein 6.9 g/dL (6.3-8.2)
== END 2023-06-10 04:11 | disposition home or self-care (01) ==
LOC: LBO 04:11
PROVIDERS: Visit Provider Internal Medicine Hematology & Oncology
DX: C90.00 Multiple myeloma not having achieved remission (principal); R22.42 Localized swelling, mass and lump, left lower limb
CPT/HCPCS: 36415; 80053; 82784; 82607; 83883; 84165; 85025

== ENCOUNTER 2023-09-09 04:04 | Outpatient (CLI) | payer MEDICARE, SELFPAY ==
[2023-09-09 08:26] LABS: Abs Immature Grans 0.01 10^3/uL (0.0-0.06); Absolute Basophil Count 0.03 10^3/uL (0.0-0.2); Absolute Eosinophil Count 0.22 10^3/uL (0.0-0.7); Absolute Lymphocyte Count 0.97 10^3/uL (1.2-3.4); Absolute Monocyte Count 0.47 10^3/uL (0.1-0.8); Absolute Neutrophil Count 1.74 10^3/uL (1.2-6.7); Basophils % 0.9; Eosinophils % 6.4; HCT 33.7 % (36.0-46.0); HGB 10.8 g/dL (11.2-15.7); Immature Grans % 0.3; Lymphocytes % 28.2; MCH 29.6 pg (27.0-33.0); MCV 92 fL (80-95); MPV 9.3 fL (8.0-11.0); Monocytes % 13.7; Neutrophils % 50.5; Platelet Count 225 10^3/uL (130-400); RBC 3.65 10^6/uL (3.93-5.22); RDW 14.9 % (11.7-14.6); RDW-SD 50.8 fL; WBC 3.44 10^3/uL (4.4-10.8)
[2023-09-09 09:16] LABS: ALT 28 U/L (14-59); AST 23 U/L (15-37); Albumin 3.3 g/dL (3.4-5.0); Alkaline Phosphatase 54 U/L (46-116); Anion Gap 6.5 mmol/L (3-11); BUN 25 mg/dL (7-18); Bilirubin, Total 0.4 mg/dL (0.2-1.0); CO2 30.5 mmol/L (21.0-32.0); CREATININE 1.2 mg/dL (0.55-1.02); Calcium 9.2 mg/dL (8.5-10.1); Chloride 102 mmol/L (98-107); Estimated GFR 47.21 (mL/min/1.73m2); Glucose 91 mg/dL (74-106); Potassium 3.8 mmol/L (3.5-5.1); Sodium 139 mmol/L (136-145); Total Protein 7.5 g/dL (6.4-8.2)
[2023-09-10 10:02] LABS: IgA 746 mg/dL (85-499); IgG 781 mg/dL (610-1616); IgM 32 mg/dL (35-242); Kappa Free Light Chain 37.13 mg/dL (0.33-1.94); Lambda Free Light Chain 1.35 mg/dL (0.57-2.63)
[2023-09-10 12:14] LABS: Albumin g/dL 3.8 g/dL (3.6-5.2); Comment (See Note); Total Protein 6.9 g/dL (6.3-8.2)
== END 2023-09-09 04:05 | disposition home or self-care (01) ==
LOC: LBO 04:04
PROVIDERS: Visit Provider Internal Medicine Hematology & Oncology
DX: C90.00 Multiple myeloma not having achieved remission (principal)
CPT/HCPCS: 36415; 80053; 82784; 83883; 84165; 85025

== ENCOUNTER 2023-11-11 09:55 | Outpatient (CLI) | payer MEDICARE, SELFPAY ==
[2023-11-11 08:47] LABS: Abs Immature Grans 0.01 10^3/uL (0.0-0.06); Absolute Basophil Count 0.05 10^3/uL (0.0-0.2); Absolute Eosinophil Count 0.12 10^3/uL (0.0-0.7); Absolute Lymphocyte Count 0.95 10^3/uL (1.2-3.4); Basophils % 1.7; Eosinophils % 4.1; HCT 33.6 % (36.0-46.0); HGB 10.8 g/dL (11.2-15.7); Immature Grans % 0.3; Lymphocytes % 32.4; MCH 28.7 pg (27.0-33.0); MCHC 32.1 % (32.0-36.0); MCV 89 fL (80-95); Monocytes % 13.7; Neutrophils % 47.8; Platelet Count 186 10^3/uL (130-400); RBC 3.76 10^6/uL (3.93-5.22); RDW 15.3 % (11.7-14.6); RDW-SD 50.4 fL; WBC 2.93 10^3/uL (4.4-10.8)
[2023-11-11 09:01] LABS: ALT 28 U/L (14-59); AST 22 U/L (15-37); Albumin 3.3 g/dL (3.4-5.0); Alkaline Phosphatase 62 U/L (46-116); Anion Gap 8.6 mmol/L (3-11); BUN 26 mg/dL (7-18); Bilirubin, Total 0.3 mg/dL (0.2-1.0); CO2 30.4 mmol/L (21.0-32.0); CREATININE 1.6 mg/dL (0.55-1.02); Calcium 8.8 mg/dL (8.5-10.1); Chloride 100 mmol/L (98-107); Estimated GFR 33.42 (mL/min/1.73m2); Glucose 109 mg/dL (74-106); Potassium 3.5 mmol/L (3.5-5.1); Sodium 139 mmol/L (136-145)
[2023-11-12 14:24] LABS: Albumin 50.2 % (55.8-66.1); Albumin g/dL 3.8 g/dL (3.6-5.2); Comment (See Note); Total Protein 7.5 g/dL (6.3-8.2)
[2023-11-12 14:55] LABS: IgA 1017 mg/dL (85-499); IgG 735 mg/dL (610-1616); IgM 26 mg/dL (35-242); Kappa Free Light Chain 67.26 mg/dL (0.33-1.94); Lambda Free Light Chain 1.37 mg/dL (0.57-2.63)
== END 2023-11-11 09:56 | disposition home or self-care (01) ==
LOC: LBO 09:56
PROVIDERS: Visit Provider Internal Medicine Hematology & Oncology
DX: C90.00 Multiple myeloma not having achieved remission (principal)
CPT/HCPCS: 36415; 80053; 82784; 83883; 84165; 85025

== ENCOUNTER 2023-12-23 13:24 | Outpatient (CLI) | payer MEDICARE, SELFPAY ==
[2023-12-23 12:45] LABS: ALT 31 U/L (14-59); AST 23 U/L (15-37); Albumin 3.4 g/dL (3.4-5.0); Alkaline Phosphatase 67 U/L (46-116); Anion Gap 10.7 mmol/L (3-11); BUN 36 mg/dL (7-18); Bilirubin, Total 0.4 mg/dL (0.2-1.0); CO2 27.3 mmol/L (21.0-32.0); CREATININE 1.5 mg/dL (0.55-1.02); Calcium 9.3 mg/dL (8.5-10.1); Chloride 101 mmol/L (98-107); Estimated GFR 36.12 (mL/min/1.73m2); Glucose 84 mg/dL (74-106); Potassium 3.7 mmol/L (3.5-5.1); Sodium 139 mmol/L (136-145); Total Protein 8.2 g/dL (6.4-8.2)
[2023-12-23 12:48] LABS: Absolute Basophil Count 0.13 10^3/uL (0.0-0.2); Absolute Eosinophil Count 0.04 10^3/uL (0.0-0.7); Absolute Lymphocyte Count 1.29 10^3/uL (1.2-3.4); Absolute Monocyte Count 0.27 10^3/uL (0.1-0.8); Absolute Neutrophil Count 2.71 10^3/uL (1.2-6.7); Atypical Lymphocytes % 4 %; Bands % 1 %; HCT 32.9 % (36.0-46.0); HGB 10.7 g/dL (11.2-15.7); MCH 29.6 pg (27.0-33.0); MCHC 32.5 % (32.0-36.0); MCV 91 fL (80-95); MPV 9.1 fL (8.0-11.0); Platelet Count 303 10^3/uL (130-400); RBC 3.62 10^6/uL (3.93-5.22); RDW 16.5 % (11.7-14.6); RDW-SD 55.3 fL; WBC 4.44 10^3/uL (4.4-10.8)
[2023-12-23 12:49] LABS: Diff Comment Manual Differential
[2023-12-24 09:06] LABS: IgA 1286 mg/dL (85-499); IgG 683 mg/dL (610-1616); IgM 25 mg/dL (35-242); Kappa Free Light Chain 90.26 mg/dL (0.33-1.94); Lambda Free Light Chain 0.81 mg/dL (0.57-2.63)
[2023-12-24 13:03] LABS: Albumin 50.8 % (55.8-66.1); Albumin g/dL 3.9 g/dL (3.6-5.2); Comment (See Note); Monoclonal Spike 15.8 % (None Seen); Monoclonal Spike g/dL 1.2 g/dL (None Seen); Total Protein 7.7 g/dL (6.3-8.2)
[2023-12-27 08:18] LABS: Immunotyping, Serum (See Note)
== END 2023-12-23 13:25 | disposition home or self-care (01) ==
LOC: LBO 13:25
PROVIDERS: Visit Provider Internal Medicine Hematology & Oncology
DX: C90.00 Multiple myeloma not having achieved remission (principal)
CPT/HCPCS: 80053; 82784; 83883; 84165; 85025; 86320

== ENCOUNTER 2023-12-30 05:14 | Outpatient (CLI) | payer MEDICARE, SELFPAY ==
[2023-12-30 08:27] LABS: Abs Immature Grans 0.02 10^3/uL (0.0-0.06); Absolute Basophil Count 0.02 10^3/uL (0.0-0.2); Absolute Eosinophil Count 0.11 10^3/uL (0.0-0.7); Absolute Lymphocyte Count 0.82 10^3/uL (1.2-3.4); Absolute Monocyte Count 0.34 10^3/uL (0.1-0.8); Absolute Neutrophil Count 3.72 10^3/uL (1.2-6.7); Basophils % 0.4 %; Eosinophils % 2.2 %; HCT 32.5 % (36.0-46.0); HGB 10.1 g/dL (11.2-15.7); Immature Grans % 0.4 %; Lymphocytes % 16.3 %; MCH 28.5 pg (27.0-33.0); MCHC 31.1 % (32.0-36.0); MCV 92 fL (80-95); MPV 9.5 fL (8.0-11.0); Monocytes % 6.8 %; Neutrophils % 73.9 %; Platelet Count 251 10^3/uL (130-400); RBC 3.54 10^6/uL (3.93-5.22); RDW-SD 57.1 fL; WBC 5.03 10^3/uL (4.4-10.8)
[2023-12-30 08:49] LABS: ALT 34 U/L (14-59); AST 22 U/L (15-37); Albumin 3.3 g/dL (3.4-5.0); Alkaline Phosphatase 63 U/L (46-116); Anion Gap 8.3 mmol/L (3-11); BUN 27 mg/dL (7-18); Bilirubin, Total 0.5 mg/dL (0.2-1.0); CO2 27.7 mmol/L (21.0-32.0); CREATININE 1.2 mg/dL (0.55-1.02); Calcium 8.9 mg/dL (8.5-10.1); Chloride 100 mmol/L (98-107); Estimated GFR 47.21 (mL/min/1.73m2); Glucose 99 mg/dL (74-106); Potassium 4.2 mmol/L (3.5-5.1); Sodium 136 mmol/L (136-145); Total Protein 7.3 g/dL (6.4-8.2)
[2023-12-31 10:36] LABS: IgA 819 mg/dL (85-499); IgG 607 mg/dL (610-1616); IgM 21 mg/dL (35-242); Kappa Free Light Chain 45.85 mg/dL (0.33-1.94); Lambda Free Light Chain <0.44 mg/dL (0.57-2.63)
[2023-12-31 14:14] LABS: Albumin 54.8 % (55.8-66.1); Albumin g/dL 3.7 g/dL (3.6-5.2); Comment (See Note); Monoclonal Spike 11.7 % (None Seen); Monoclonal Spike g/dL 0.8 g/dL (None Seen); Total Protein 6.7 g/dL (6.3-8.2)
== END 2023-12-30 05:15 | disposition home or self-care (01) ==
LOC: LBO 05:14
PROVIDERS: Visit Provider Internal Medicine Hematology & Oncology
DX: C90.00 Multiple myeloma not having achieved remission (principal)
CPT/HCPCS: 36415; 80053; 82784; 83883; 84165; 85025

== ENCOUNTER 2024-01-06 05:11 | Outpatient (CLI) | payer MEDICARE, SELFPAY ==
[2024-01-06 10:15] LABS: Abs Immature Grans 0.05 10^3/uL (0.0-0.06); Absolute Basophil Count 0.02 10^3/uL (0.0-0.2); Absolute Eosinophil Count 0.09 10^3/uL (0.0-0.7); Absolute Lymphocyte Count 0.65 10^3/uL (1.2-3.4); Absolute Monocyte Count 0.46 10^3/uL (0.1-0.8); Absolute Neutrophil Count 5.34 10^3/uL (1.2-6.7); Basophils % 0.3 %; Eosinophils % 1.4 %; HCT 31.4 % (36.0-46.0); Immature Grans % 0.8 %; Lymphocytes % 9.8 %; MCH 29.1 pg (27.0-33.0); MCHC 31.8 % (32.0-36.0); MCV 91 fL (80-95); MPV 9.3 fL (8.0-11.0); Neutrophils % 80.7 %; Platelet Count 164 10^3/uL (130-400); RBC 3.44 10^6/uL (3.93-5.22); RDW 17.3 % (11.7-14.6); RDW-SD 57.8 fL; WBC 6.61 10^3/uL (4.4-10.8)
[2024-01-06 10:31] LABS: ALT 32 U/L (14-59); AST 16 U/L (15-37); Albumin 3.1 g/dL (3.4-5.0); Alkaline Phosphatase 62 U/L (46-116); Anion Gap 7.7 mmol/L (3-11); BUN 22 mg/dL (7-18); Bilirubin, Total 0.5 mg/dL (0.2-1.0); CO2 29.3 mmol/L (21.0-32.0); CREATININE 1.3 mg/dL (0.55-1.02); Chloride 99 mmol/L (98-107); Estimated GFR 42.88 (mL/min/1.73m2); Glucose 86 mg/dL (74-106); Potassium 3.5 mmol/L (3.5-5.1); Sodium 136 mmol/L (136-145); Total Protein 7.1 g/dL (6.4-8.2)
[2024-01-07 10:56] LABS: IgA 499 mg/dL (85-499); IgG 562 mg/dL (610-1616); IgM 24 mg/dL (35-242); Kappa Free Light Chain 30.43 mg/dL (0.33-1.94); Lambda Free Light Chain <0.44 mg/dL (0.57-2.63)
[2024-01-07 14:07] LABS: Albumin 54.6 % (55.8-66.1); Albumin g/dL 3.5 g/dL (3.6-5.2); Monoclonal Spike 8.3 % (None Seen); Monoclonal Spike g/dL 0.5 g/dL (None Seen); Total Protein 6.5 g/dL (6.3-8.2)
[2024-01-07 15:11] LABS: Comment (See Note)
[2024-01-21 09:54] LABS: Immunotyping, Serum (See Note)
== END 2024-01-06 05:12 | disposition home or self-care (01) ==
PROVIDERS: Visit Provider Internal Medicine Hematology & Oncology
DX: C90.00 Multiple myeloma not having achieved remission (principal)
CPT/HCPCS: 36415; 80053; 82784; 83883; 84165; 85025; 86320

== ENCOUNTER 2024-01-06 12:03 | Outpatient (REF) | payer MEDICARE, SELFPAY ==
[2024-01-06 12:50] LABS: Bilirubin Negative (Negative); Blood Large (Negative); Clarity Sl Cloudy (Clear); Glucose Negative (Negative); Ketones Negative (Negative); Leukocyte Esterase Large (Negative); Nitrite Negative (Negative); Urobilinogen 0.2 mg/dL (Up to 0.2); pH 6.5 (5-8)
[2024-01-06 12:59] LABS: Bacteria Many HPF (Negative); C & S Indicated? Yes; Casts Negative LPF (Negative); Crystals Negative HPF (Negative); Epithelial Cells Few HPF (Negative); Mucus Negative (Negative); WBC 20-50 HPF (0-5)
== END 2024-01-06 12:04 | disposition home or self-care (01) ==
LOC: LBN 12:03
PROVIDERS: Visit Provider Nurse Practitioner Family
DX: R30.0 Dysuria (principal); B96.20 Unspecified Escherichia coli [E. coli] as the cause of diseases classified elsewhere
CPT/HCPCS: 87077; 81003; 81015; 87086; 87186

== ENCOUNTER 2024-01-20 05:06 | Outpatient (CLI) | payer MEDICARE, SELFPAY ==
[2024-01-20 09:20] LABS: Abs Immature Grans 0.02 10^3/uL (0.0-0.06); Absolute Basophil Count 0.01 10^3/uL (0.0-0.2); Absolute Eosinophil Count 0.03 10^3/uL (0.0-0.7); Absolute Lymphocyte Count 0.58 10^3/uL (1.2-3.4); Absolute Monocyte Count 0.32 10^3/uL (0.1-0.8); Basophils % 0.3 %; Eosinophils % 0.8 %; HCT 31.5 % (36.0-46.0); HGB 10.2 g/dL (11.2-15.7); Immature Grans % 0.5 %; MCH 29.6 pg (27.0-33.0); MCHC 32.4 % (32.0-36.0); MCV 91 fL (80-95); MPV 8.6 fL (8.0-11.0); Monocytes % 8.3 %; Neutrophils % 75.1 %; Platelet Count 247 10^3/uL (130-400); RBC 3.45 10^6/uL (3.93-5.22); RDW 18.4 % (11.7-14.6); RDW-SD 60.2 fL; WBC 3.86 10^3/uL (4.4-10.8)
[2024-01-20 09:37] LABS: ALT 31 U/L (14-59); AST 20 U/L (15-37); Albumin 3.5 g/dL (3.4-5.0); Alkaline Phosphatase 81 U/L (46-116); BUN 25 mg/dL (7-18); Bilirubin, Total 0.4 mg/dL (0.2-1.0); CREATININE 1.4 mg/dL (0.55-1.02); Chloride 99 mmol/L (98-107); Estimated GFR 39.23 (mL/min/1.73m2); Glucose 83 mg/dL (74-106); Potassium 3.7 mmol/L (3.5-5.1); Sodium 137 mmol/L (136-145); Total Protein 7.2 g/dL (6.4-8.2)
[2024-01-21 10:23] LABS: IgA 290 mg/dL (85-499); IgG 527 mg/dL (610-1616); IgM 29 mg/dL (35-242); Kappa Free Light Chain 34.31 mg/dL (0.33-1.94); Lambda Free Light Chain <0.44 mg/dL (0.57-2.63)
[2024-01-21 14:12] LABS: Albumin 59.4 % (55.8-66.1); Albumin g/dL 3.9 g/dL (3.6-5.2); Comment (See Note); Monoclonal Spike 6.4 % (None Seen); Monoclonal Spike g/dL 0.4 g/dL (None Seen); Total Protein 6.6 g/dL (6.3-8.2)
== END 2024-01-20 05:07 | disposition home or self-care (01) ==
PROVIDERS: Visit Provider Internal Medicine Hematology & Oncology
DX: C90.00 Multiple myeloma not having achieved remission (principal)
CPT/HCPCS: 36415; 80053; 82784; 83883; 84165; 85025

== ENCOUNTER 2024-01-27 00:58 | Outpatient (CLI) | payer MEDICARE, SELFPAY ==
[2024-01-27 12:46] LABS: WBC 3.65 10^3/uL (4.4-10.8)
[2024-01-27 12:47] LABS: Abs Immature Grans 0.03 10^3/uL (0.0-0.06); Absolute Basophil Count 0.01 10^3/uL (0.0-0.2); Absolute Eosinophil Count 0.04 10^3/uL (0.0-0.7); Absolute Lymphocyte Count 0.67 10^3/uL (1.2-3.4); Absolute Monocyte Count 0.39 10^3/uL (0.1-0.8); Absolute Neutrophil Count 2.51 10^3/uL (1.2-6.7); Basophils % 0.3 %; Eosinophils % 1.1 %; HCT 32.4 % (36.0-46.0); HGB 10.7 g/dL (11.2-15.7); Immature Grans % 0.8 %; Lymphocytes % 18.4 %; MCH 29.7 pg (27.0-33.0); MCV 90 fL (80-95); MPV 8.8 fL (8.0-11.0); Monocytes % 10.7 %; Neutrophils % 68.7 %; Platelet Count 175 10^3/uL (130-400); RDW 18.6 % (11.7-14.6); RDW-SD 61.6 fL
== END 2024-01-27 00:59 | disposition home or self-care (01) ==
LOC: LBO 00:58
PROVIDERS: Visit Provider Internal Medicine Hematology & Oncology
DX: C90.00 Multiple myeloma not having achieved remission (principal)
CPT/HCPCS: 85025

== ENCOUNTER 2024-02-03 01:34 | Outpatient (CLI) | payer MEDICARE, SELFPAY ==
[2024-02-03 10:08] LABS: Abs Immature Grans 0.03 10^3/uL (0.0-0.06); Absolute Basophil Count 0.02 10^3/uL (0.0-0.2); Absolute Eosinophil Count 0.05 10^3/uL (0.0-0.7); Absolute Lymphocyte Count 0.71 10^3/uL (1.2-3.4); Absolute Monocyte Count 0.47 10^3/uL (0.1-0.8); Absolute Neutrophil Count 2.95 10^3/uL (1.2-6.7); Basophils % 0.5 %; Eosinophils % 1.2 %; HGB 9.7 g/dL (11.2-15.7); Immature Grans % 0.7 %; Lymphocytes % 16.8 %; MCHC 32.3 % (32.0-36.0); MCV 93 fL (80-95); MPV 8.7 fL (8.0-11.0); Monocytes % 11.1 %; Neutrophils % 69.7 %; Platelet Count 144 10^3/uL (130-400); RBC 3.23 10^6/uL (3.93-5.22); RDW 18.6 % (11.7-14.6); RDW-SD 63.7 fL; WBC 4.23 10^3/uL (4.4-10.8)
[2024-02-03 10:24] LABS: ALT 41 U/L (14-59); AST 23 U/L (15-37); Albumin 3.3 g/dL (3.4-5.0); Alkaline Phosphatase 74 U/L (46-116); Anion Gap 6.9 mmol/L (3-11); BUN 23 mg/dL (7-18); Bilirubin, Total 0.47 mg/dL (0.2-1.0); CO2 29.1 mmol/L (21.0-32.0); CREATININE 1.5 mg/dL (0.55-1.02); Calcium 8.7 mg/dL (8.5-10.1); Chloride 98 mmol/L (98-107); Estimated GFR 36.12 (mL/min/1.73m2); Glucose 85 mg/dL (74-106); Potassium 4.2 mmol/L (3.5-5.1); Sodium 134 mmol/L (136-145); Total Protein 6.4 g/dL (6.4-8.2)
[2024-02-04 10:09] LABS: IgA 192 mg/dL (85-499); IgG 479 mg/dL (610-1616); IgM 23 mg/dL (35-242); Kappa Free Light Chain 29.14 mg/dL (0.33-1.94); Lambda Free Light Chain <0.44 mg/dL (0.57-2.63)
[2024-02-04 12:54] LABS: Albumin 60.8 % (55.8-66.1); Albumin g/dL 3.6 g/dL (3.6-5.2); Comment (See Note)
[2024-02-04 15:42] LABS: Immunotyping, Serum (See Note)
== END 2024-02-03 01:35 | disposition home or self-care (01) ==
LOC: LBO 01:34
PROVIDERS: Visit Provider Internal Medicine Hematology & Oncology
DX: C90.00 Multiple myeloma not having achieved remission (principal)
CPT/HCPCS: 36415; 80053; 82784; 83883; 84165; 85025; 86320

== ENCOUNTER 2024-02-10 01:22 | Outpatient (CLI) | payer MEDICARE, SELFPAY ==
[2024-02-10 09:41] LABS: Abs Immature Grans 0.04 10^3/uL (0.0-0.06); Absolute Basophil Count 0.02 10^3/uL (0.0-0.2); Absolute Eosinophil Count 0.08 10^3/uL (0.0-0.7); Absolute Lymphocyte Count 1.05 10^3/uL (1.2-3.4); Absolute Neutrophil Count 2.52 10^3/uL (1.2-6.7); Basophils % 0.5 %; Eosinophils % 1.9 %; HCT 29.8 % (36.0-46.0); HGB 9.8 g/dL (11.2-15.7); Immature Grans % 0.9 %; Lymphocytes % 24.4 %; MCH 30.4 pg (27.0-33.0); MCHC 32.9 % (32.0-36.0); MCV 93 fL (80-95); MPV 9.2 fL (8.0-11.0); Monocytes % 13.9 %; Neutrophils % 58.4 %; Platelet Count 146 10^3/uL (130-400); RBC 3.22 10^6/uL (3.93-5.22); RDW 18.4 % (11.7-14.6); RDW-SD 62.4 fL; WBC 4.31 10^3/uL (4.4-10.8)
[2024-02-10 09:55] LABS: ALT 46 U/L (14-59); AST 22 U/L (15-37); Albumin 3.3 g/dL (3.4-5.0); Alkaline Phosphatase 70 U/L (46-116); Anion Gap 8.6 mmol/L (3-11); BUN 30 mg/dL (7-18); Bilirubin, Total 0.51 mg/dL (0.2-1.0); CO2 27.4 mmol/L (21.0-32.0); CREATININE 1.4 mg/dL (0.55-1.02); Calcium 8.9 mg/dL (8.5-10.1); Chloride 99 mmol/L (98-107); Estimated GFR 39.23 (mL/min/1.73m2); Glucose 98 mg/dL (74-106); Potassium 4.1 mmol/L (3.5-5.1); Sodium 135 mmol/L (136-145); Total Protein 6.5 g/dL (6.4-8.2)
[2024-02-11 08:23] LABS: IgA 167 mg/dL (85-499); IgG 462 mg/dL (610-1616); IgM 23 mg/dL (35-242); Kappa Free Light Chain 27.52 mg/dL (0.33-1.94); Lambda Free Light Chain <0.44 mg/dL (0.57-2.63)
[2024-02-11 12:51] LABS: Albumin 61.8 % (55.8-66.1); Albumin g/dL 3.8 g/dL (3.6-5.2); Comment (See Note); Total Protein 6.1 g/dL (6.3-8.2)
== END 2024-02-10 01:23 | disposition home or self-care (01) ==
LOC: LBO 01:23
PROVIDERS: Visit Provider Internal Medicine Hematology & Oncology
DX: C90.00 Multiple myeloma not having achieved remission (principal)
CPT/HCPCS: 36415; 80053; 82784; 83883; 84165; 85025

== ENCOUNTER 2024-02-16 02:24 | Outpatient (CLI) | payer MEDICARE, SELFPAY ==
[2024-02-16 14:37] LABS: ALT 34 U/L (14-59); AST 20 U/L (15-37); Albumin 3.5 g/dL (3.4-5.0); Alkaline Phosphatase 69 U/L (46-116); Anion Gap 9.1 mmol/L (3-11); BUN 25 mg/dL (7-18); Bilirubin, Total 0.53 mg/dL (0.2-1.0); CO2 28.9 mmol/L (21.0-32.0); CREATININE 1.3 mg/dL (0.55-1.02); Calcium 9.4 mg/dL (8.5-10.1); Chloride 98 mmol/L (98-107); Estimated GFR 42.88 (mL/min/1.73m2); Glucose 115 mg/dL (74-106); NT-proBNP 94 pg/mL (<300); Potassium 3.6 mmol/L (3.5-5.1); Sodium 136 mmol/L (136-145); Total Protein 6.1 g/dL (6.4-8.2)
[2024-02-17 09:15] LABS: IgA 170 mg/dL (85-499); IgG 494 mg/dL (610-1616); IgM 23 mg/dL (35-242); Kappa Free Light Chain 27.78 mg/dL (0.33-1.94); Lambda Free Light Chain <0.44 mg/dL (0.57-2.63)
[2024-02-21 11:15] LABS: Albumin 62.8 % (55.8-66.1); Albumin g/dL 3.8 g/dL (3.6-5.2); Comment (See Note)
== END 2024-02-16 02:25 | disposition home or self-care (01) ==
LOC: LBO 02:24
PROVIDERS: Visit Provider Internal Medicine Hematology & Oncology
DX: R06.09 Other forms of dyspnea (principal); Z51.81 Encounter for therapeutic drug level monitoring; Z79.899 Other long term (current) drug therapy; C90.00 Multiple myeloma not having achieved remission
CPT/HCPCS: 36415; 80053; 82784; 83880; 83883; 84165; 85025

== ENCOUNTER 2024-02-24 01:02 | Outpatient (CLI) | payer MEDICARE, SELFPAY ==
[2024-02-24 08:52] LABS: Abs Immature Grans 0.03 10^3/uL (0.0-0.06); Absolute Basophil Count 0.03 10^3/uL (0.0-0.2); Absolute Eosinophil Count 0.07 10^3/uL (0.0-0.7); Absolute Monocyte Count 0.67 10^3/uL (0.1-0.8); Absolute Neutrophil Count 3.07 10^3/uL (1.2-6.7); Basophils % 0.6 %; Eosinophils % 1.3 %; HCT 29.7 % (36.0-46.0); HGB 9.7 g/dL (11.2-15.7); Immature Grans % 0.6 %; Lymphocytes % 26.6 %; MCH 31.5 pg (27.0-33.0); MCHC 32.7 % (32.0-36.0); MCV 96 fL (80-95); MPV 8.9 fL (8.0-11.0); Monocytes % 12.7 %; Neutrophils % 58.2 %; Platelet Count 177 10^3/uL (130-400); RBC 3.08 10^6/uL (3.93-5.22); RDW 17.9 % (11.7-14.6); RDW-SD 62.5 fL; WBC 5.27 10^3/uL (4.4-10.8)
== END 2024-02-24 01:03 | disposition home or self-care (01) ==
LOC: LBO 01:02
PROVIDERS: Visit Provider Internal Medicine Hematology & Oncology
DX: C90.02 Multiple myeloma in relapse (principal)
CPT/HCPCS: 36415; 85025

== ENCOUNTER 2024-03-02 02:23 | Outpatient (CLI) | payer MEDICARE, SELFPAY ==
[2024-03-02 12:01] LABS: Abs Immature Grans 0.02 10^3/uL (0.0-0.06); Absolute Basophil Count 0.01 10^3/uL (0.0-0.2); Absolute Eosinophil Count 0.05 10^3/uL (0.0-0.7); Absolute Lymphocyte Count 1.23 10^3/uL (1.2-3.4); Absolute Monocyte Count 0.64 10^3/uL (0.1-0.8); Absolute Neutrophil Count 4.15 10^3/uL (1.2-6.7); Basophils % 0.2 %; Eosinophils % 0.8 %; HCT 31.9 % (36.0-46.0); HGB 10.1 g/dL (11.2-15.7); Immature Grans % 0.3 %; Lymphocytes % 20.2 %; MCH 31.5 pg (27.0-33.0); MCHC 31.7 % (32.0-36.0); MCV 99 fL (80-95); Monocytes % 10.5 %; Platelet Count 201 10^3/uL (130-400); RBC 3.21 10^6/uL (3.93-5.22); RDW 18.6 % (11.7-14.6); RDW-SD 65.3 fL
[2024-03-02 12:30] LABS: ALT 25 U/L (14-59); AST 19 U/L (15-37); Albumin 3.5 g/dL (3.4-5.0); Alkaline Phosphatase 69 U/L (46-116); Anion Gap 6.5 mmol/L (3-11); BUN 28 mg/dL (7-18); Bilirubin, Total 0.65 mg/dL (0.2-1.0); CO2 29.5 mmol/L (21.0-32.0); CREATININE 1.3 mg/dL (0.55-1.02); Calcium 9.5 mg/dL (8.5-10.1); Chloride 100 mmol/L (98-107); Estimated GFR 42.88 (mL/min/1.73m2); Glucose 89 mg/dL (74-106); NT-proBNP 138 pg/mL (<300); Potassium 3.9 mmol/L (3.5-5.1); Sodium 136 mmol/L (136-145); Total Protein 6.8 g/dL (6.4-8.2)
[2024-03-03 13:16] LABS: IgA 175 mg/dL (85-499); IgG 458 mg/dL (610-1616); IgM 34 mg/dL (35-242); Lambda Free Light Chain <0.44 mg/dL (0.57-2.63)
[2024-03-03 15:22] LABS: Albumin 62.9 % (55.8-66.1); Albumin g/dL 3.9 g/dL (3.6-5.2); Comment (See Note); Total Protein 6.2 g/dL (6.3-8.2)
== END 2024-03-02 02:24 | disposition home or self-care (01) ==
LOC: LBO 02:23
PROVIDERS: Visit Provider Internal Medicine Hematology & Oncology
DX: R06.09 Other forms of dyspnea (principal); Z51.81 Encounter for therapeutic drug level monitoring; C90.02 Multiple myeloma in relapse; Z79.899 Other long term (current) drug therapy
CPT/HCPCS: 36415; 80053; 82784; 83880; 83883; 84165; 85025

== ENCOUNTER 2024-03-09 02:44 | Outpatient (CLI) | payer MEDICARE, SELFPAY ==
[2024-03-09 09:43] LABS: Abs Immature Grans 0.02 10^3/uL (0.0-0.06); Absolute Basophil Count 0.01 10^3/uL (0.0-0.2); Absolute Eosinophil Count 0.04 10^3/uL (0.0-0.7); Absolute Lymphocyte Count 0.79 10^3/uL (1.2-3.4); Absolute Neutrophil Count 3.82 10^3/uL (1.2-6.7); Basophils % 0.2 %; Eosinophils % 0.8 %; HCT 33.2 % (36.0-46.0); HGB 10.7 g/dL (11.2-15.7); Immature Grans % 0.4 %; MCH 32.1 pg (27.0-33.0); MCHC 32.2 % (32.0-36.0); MCV 100 fL (80-95); MPV 9.2 fL (8.0-11.0); Monocytes % 11.4 %; Neutrophils % 72.2 %; Platelet Count 219 10^3/uL (130-400); RBC 3.33 10^6/uL (3.93-5.22); RDW 17.5 % (11.7-14.6); RDW-SD 64.8 fL; WBC 5.28 10^3/uL (4.4-10.8)
[2024-03-09 10:04] LABS: ALT 25 U/L (14-59); AST 18 U/L (15-37); Albumin 3.4 g/dL (3.4-5.0); Alkaline Phosphatase 68 U/L (46-116); Anion Gap 7.8 mmol/L (3-11); BUN 34 mg/dL (7-18); Bilirubin, Total 0.75 mg/dL (0.2-1.0); CO2 29.2 mmol/L (21.0-32.0); CREATININE 1.3 mg/dL (0.55-1.02); Calcium 9.1 mg/dL (8.5-10.1); Chloride 102 mmol/L (98-107); Estimated GFR 42.62 (mL/min/1.73m2); Glucose 76 mg/dL (74-106); NT-proBNP 71 pg/mL (<300); Sodium 139 mmol/L (136-145); Total Protein 6.8 g/dL (6.4-8.2)
[2024-03-10 10:52] LABS: IgA 182 mg/dL (85-499); IgG 484 mg/dL (610-1616); IgM 35 mg/dL (35-242); Kappa Free Light Chain 32.31 mg/dL (0.33-1.94); Lambda Free Light Chain <0.44 mg/dL (0.57-2.63)
[2024-03-10 14:10] LABS: Albumin 61.7 % (55.8-66.1); Albumin g/dL 3.8 g/dL (3.6-5.2); Comment (See Note); Total Protein 6.1 g/dL (6.3-8.2)
== END 2024-03-09 02:45 | disposition home or self-care (01) ==
LOC: LBO 02:44
PROVIDERS: Visit Provider Internal Medicine Hematology & Oncology
DX: R06.09 Other forms of dyspnea (principal); Z79.899 Other long term (current) drug therapy; Z51.81 Encounter for therapeutic drug level monitoring; C90.02 Multiple myeloma in relapse; C90.00 Multiple myeloma not having achieved remission
CPT/HCPCS: 36415; 80053; 82784; 83880; 83883; 84165; 85025

== ENCOUNTER 2024-03-16 15:08 | Outpatient (CLI) | payer MEDICARE, SELFPAY ==
[2024-03-16 08:47] LABS: Abs Immature Grans 0.01 10^3/uL (0.0-0.06); Absolute Basophil Count 0.02 10^3/uL (0.0-0.2); Absolute Eosinophil Count 0.03 10^3/uL (0.0-0.7); Absolute Lymphocyte Count 1.07 10^3/uL (1.2-3.4); Absolute Monocyte Count 0.55 10^3/uL (0.1-0.8); Absolute Neutrophil Count 3.58 10^3/uL (1.2-6.7); Basophils % 0.4 %; Eosinophils % 0.6 %; HCT 32.9 % (36.0-46.0); HGB 10.5 g/dL (11.2-15.7); Immature Grans % 0.2 %; Lymphocytes % 20.3 %; MCH 32.4 pg (27.0-33.0); MCHC 31.9 % (32.0-36.0); MCV 102 fL (80-95); MPV 8.4 fL (8.0-11.0); Monocytes % 10.5 %; Platelet Count 292 10^3/uL (130-400); RBC 3.24 10^6/uL (3.93-5.22); RDW 15.4 % (11.7-14.6); RDW-SD 57.2 fL; WBC 5.26 10^3/uL (4.4-10.8)
[2024-03-16 09:52] LABS: ALT 22 U/L (14-59); AST 18 U/L (15-37); Albumin 3.6 g/dL (3.4-5.0); Alkaline Phosphatase 69 U/L (46-116); Anion Gap 7.4 mmol/L (3-11); BUN 29 mg/dL (7-18); CO2 29.6 mmol/L (21.0-32.0); CREATININE 1.4 mg/dL (0.55-1.02); Calcium 9.3 mg/dL (8.5-10.1); Chloride 103 mmol/L (98-107); Estimated GFR 38.99 (mL/min/1.73m2); Glucose 99 mg/dL (74-106); NT-proBNP 119 pg/mL (<300); Potassium 4.3 mmol/L (3.5-5.1); Sodium 140 mmol/L (136-145); Total Protein 6.9 g/dL (6.4-8.2)
== END 2024-03-16 15:09 | disposition home or self-care (01) ==
LOC: LBO 15:08
PROVIDERS: Visit Provider Internal Medicine Hematology & Oncology
DX: R06.09 Other forms of dyspnea (principal); Z79.899 Other long term (current) drug therapy; C90.02 Multiple myeloma in relapse; Z51.81 Encounter for therapeutic drug level monitoring
CPT/HCPCS: 36415; 80053; 83880; 85025

== ENCOUNTER 2024-03-23 01:47 | Outpatient (CLI) | payer MEDICARE, SELFPAY ==
[2024-03-23 11:42] LABS: Abs Immature Grans 0.03 10^3/uL (0.0-0.06); Absolute Basophil Count 0.02 10^3/uL (0.0-0.2); Absolute Eosinophil Count 0.06 10^3/uL (0.0-0.7); Absolute Lymphocyte Count 1.05 10^3/uL (1.2-3.4); Absolute Monocyte Count 0.57 10^3/uL (0.1-0.8); Absolute Neutrophil Count 3.59 10^3/uL (1.2-6.7); Basophils % 0.4 %; Eosinophils % 1.1 %; HCT 32.4 % (36.0-46.0); HGB 10.4 g/dL (11.2-15.7); Immature Grans % 0.6 %; Lymphocytes % 19.7 %; MCHC 32.1 % (32.0-36.0); MCV 103 fL (80-95); MPV 8.9 fL (8.0-11.0); Monocytes % 10.7 %; Neutrophils % 67.5 %; Platelet Count 195 10^3/uL (130-400); RBC 3.15 10^6/uL (3.93-5.22); RDW 14.8 % (11.7-14.6); RDW-SD 55.6 fL; WBC 5.32 10^3/uL (4.4-10.8)
[2024-03-23 12:13] LABS: ALT 28 U/L (14-59); AST 19 U/L (15-37); Albumin 3.7 g/dL (3.4-5.0); Alkaline Phosphatase 70 U/L (46-116); Anion Gap 8.3 mmol/L (3-11); BUN 33 mg/dL (7-18); Bilirubin, Total 0.58 mg/dL (0.2-1.0); CO2 28.7 mmol/L (21.0-32.0); CREATININE 1.4 mg/dL (0.55-1.02); Calcium 9.6 mg/dL (8.5-10.1); Chloride 101 mmol/L (98-107); Estimated GFR 38.99 (mL/min/1.73m2); Glucose 99 mg/dL (74-106); NT-proBNP 173 pg/mL (<300); Potassium 3.8 mmol/L (3.5-5.1); Sodium 138 mmol/L (136-145)
[2024-03-24 09:11] LABS: IgA 210 mg/dL (85-499); IgG 494 mg/dL (610-1616); IgM 33 mg/dL (35-242); Kappa Free Light Chain 43.72 mg/dL (0.33-1.94); Lambda Free Light Chain <0.44 mg/dL (0.57-2.63)
[2024-03-24 12:41] LABS: Albumin 62.7 % (55.8-66.1); Albumin g/dL 4.1 g/dL (3.6-5.2); Comment (See Note); Monoclonal Spike 5.4 % (None Seen); Monoclonal Spike g/dL 0.4 g/dL (None Seen); Total Protein 6.5 g/dL (6.3-8.2)
== END 2024-03-23 01:48 | disposition home or self-care (01) ==
LOC: LBO 01:47
PROVIDERS: Visit Provider Internal Medicine Hematology & Oncology
DX: R06.09 Other forms of dyspnea (principal); C90.02 Multiple myeloma in relapse
CPT/HCPCS: 36415; 80053; 82784; 83880; 83883; 84165; 85025

== ENCOUNTER 2024-03-30 04:07 | Outpatient (CLI) | payer MEDICARE, SELFPAY ==
[2024-03-30 09:53] LABS: Abs Immature Grans 0.03 10^3/uL (0.0-0.06); Absolute Basophil Count 0.02 10^3/uL (0.0-0.2); Absolute Eosinophil Count 0.07 10^3/uL (0.0-0.7); Absolute Lymphocyte Count 0.91 10^3/uL (1.2-3.4); Absolute Monocyte Count 0.56 10^3/uL (0.1-0.8); Absolute Neutrophil Count 5.63 10^3/uL (1.2-6.7); Basophils % 0.3 %; HCT 32.6 % (36.0-46.0); HGB 10.4 g/dL (11.2-15.7); Immature Grans % 0.4 %; Lymphocytes % 12.6 %; MCHC 31.9 % (32.0-36.0); MCV 104 fL (80-95); MPV 9.2 fL (8.0-11.0); Monocytes % 7.8 %; Neutrophils % 77.9 %; Platelet Count 212 10^3/uL (130-400); RBC 3.15 10^6/uL (3.93-5.22); RDW 14.4 % (11.7-14.6); RDW-SD 54.5 fL; WBC 7.22 10^3/uL (4.4-10.8)
[2024-03-30 10:14] LABS: ALT 24 U/L (14-59); AST 18 U/L (15-37); Albumin 3.5 g/dL (3.4-5.0); Alkaline Phosphatase 69 U/L (46-116); Anion Gap 9.9 mmol/L (3-11); BUN 33 mg/dL (7-18); Bilirubin, Total 0.47 mg/dL (0.2-1.0); CO2 27.1 mmol/L (21.0-32.0); CREATININE 1.4 mg/dL (0.55-1.02); Calcium 9.4 mg/dL (8.5-10.1); Chloride 100 mmol/L (98-107); Estimated GFR 38.99 (mL/min/1.73m2); Glucose 79 mg/dL (74-106); NT-proBNP 103 pg/mL (<300); Potassium 3.8 mmol/L (3.5-5.1); Sodium 137 mmol/L (136-145); Total Protein 6.7 g/dL (6.4-8.2)
[2024-03-31 08:43] LABS: IgA 216 mg/dL (85-499); IgG 469 mg/dL (610-1616); IgM 34 mg/dL (35-242); Kappa Free Light Chain 43.02 mg/dL (0.33-1.94); Lambda Free Light Chain <0.44 mg/dL (0.57-2.63)
[2024-03-31 15:59] LABS: Albumin 62.3 % (55.8-66.1); Comment (See Note); Monoclonal Spike 5.9 % (None Seen); Monoclonal Spike g/dL 0.4 g/dL (None Seen); Total Protein 6.4 g/dL (6.3-8.2)
== END 2024-03-30 04:08 | disposition home or self-care (01) ==
LOC: LBO 04:07
PROVIDERS: Visit Provider Internal Medicine Hematology & Oncology
DX: R06.09 Other forms of dyspnea (principal); C90.02 Multiple myeloma in relapse
CPT/HCPCS: 36415; 80053; 82784; 83880; 83883; 84165; 85025

== ENCOUNTER 2024-04-06 03:36 | Outpatient (CLI) | payer MEDICARE, SELFPAY ==
[2024-04-06 09:42] LABS: Abs Immature Grans 0.02 10^3/uL (0.0-0.06); Absolute Basophil Count 0.02 10^3/uL (0.0-0.2); Absolute Lymphocyte Count 0.71 10^3/uL (1.2-3.4); Absolute Monocyte Count 0.68 10^3/uL (0.1-0.8); Absolute Neutrophil Count 4.64 10^3/uL (1.2-6.7); Basophils % 0.3 %; Eosinophils % 1.6 %; HCT 34.6 % (36.0-46.0); HGB 10.9 g/dL (11.2-15.7); Immature Grans % 0.3 %; Lymphocytes % 11.5 %; MCH 32.8 pg (27.0-33.0); MCHC 31.5 % (32.0-36.0); MCV 104 fL (80-95); MPV 9.5 fL (8.0-11.0); Neutrophils % 75.3 %; Platelet Count 207 10^3/uL (130-400); RBC 3.32 10^6/uL (3.93-5.22); RDW-SD 57.1 fL; WBC 6.17 10^3/uL (4.4-10.8)
[2024-04-06 10:06] LABS: ALT 19 U/L (14-59); AST 17 U/L (15-37); Albumin 3.2 g/dL (3.4-5.0); Alkaline Phosphatase 68 U/L (46-116); Anion Gap 7.7 mmol/L (3-11); BUN 23 mg/dL (7-18); Bilirubin, Total 0.37 mg/dL (0.2-1.0); CO2 29.3 mmol/L (21.0-32.0); CREATININE 1.2 mg/dL (0.55-1.02); Calcium 9.1 mg/dL (8.5-10.1); Chloride 101 mmol/L (98-107); Estimated GFR 46.91 (mL/min/1.73m2); Glucose 74 mg/dL (74-106); Potassium 3.8 mmol/L (3.5-5.1); Sodium 138 mmol/L (136-145); Total Protein 6.7 g/dL (6.4-8.2)
[2024-04-07 09:58] LABS: IgA 219 mg/dL (85-499); IgG 466 mg/dL (610-1616); IgM 39 mg/dL (35-242); Lambda Free Light Chain <0.44 mg/dL (0.57-2.63)
[2024-04-07 13:43] LABS: Albumin 61.1 % (55.8-66.1); Albumin g/dL 3.9 g/dL (3.6-5.2); Monoclonal Spike 6.5 % (None Seen); Monoclonal Spike g/dL 0.4 g/dL (None Seen); Total Protein 6.4 g/dL (6.3-8.2)
[2024-04-07 15:37] LABS: Comment (See Note)
== END 2024-04-06 03:37 | disposition home or self-care (01) ==
LOC: LBO 03:36
PROVIDERS: Visit Provider Internal Medicine Hematology & Oncology
DX: C90.02 Multiple myeloma in relapse (principal)
CPT/HCPCS: 36415; 80053; 82784; 83883; 84165; 85025

== ENCOUNTER 2024-04-13 10:28 | Outpatient (CLI) | payer MEDICARE, SELFPAY ==
[2024-04-13 09:18] LABS: Abs Immature Grans 0.01 10^3/uL (0.0-0.06); Absolute Basophil Count 0.03 10^3/uL (0.0-0.2); Absolute Eosinophil Count 0.07 10^3/uL (0.0-0.7); Absolute Lymphocyte Count 0.78 10^3/uL (1.2-3.4); Absolute Monocyte Count 0.46 10^3/uL (0.1-0.8); Absolute Neutrophil Count 3.48 10^3/uL (1.2-6.7); Basophils % 0.6 %; Eosinophils % 1.4 %; HCT 36.7 % (36.0-46.0); HGB 11.3 g/dL (11.2-15.7); Immature Grans % 0.2 %; Lymphocytes % 16.1 %; MCH 31.7 pg (27.0-33.0); MCHC 30.8 % (32.0-36.0); MCV 103 fL (80-95); Monocytes % 9.5 %; Neutrophils % 72.2 %; Platelet Count 331 10^3/uL (130-400); RBC 3.56 10^6/uL (3.93-5.22); RDW 14.2 % (11.7-14.6); RDW-SD 54.1 fL; WBC 4.83 10^3/uL (4.4-10.8)
[2024-04-13 09:40] LABS: ALT 21 U/L (14-59); AST 20 U/L (15-37); Albumin 3.5 g/dL (3.4-5.0); Alkaline Phosphatase 64 U/L (46-116); Anion Gap 8.9 mmol/L (3-11); BUN 29 mg/dL (7-18); Bilirubin, Total 0.45 mg/dL (0.2-1.0); CO2 25.1 mmol/L (21.0-32.0); CREATININE 1.4 mg/dL (0.55-1.02); Calcium 9.3 mg/dL (8.5-10.1); Chloride 103 mmol/L (98-107); Estimated GFR 38.99 (mL/min/1.73m2); Glucose 97 mg/dL (74-106); NT-proBNP 92 pg/mL (<300); Potassium 4.4 mmol/L (3.5-5.1); Sodium 137 mmol/L (136-145); Total Protein 7.1 g/dL (6.4-8.2)
[2024-04-14 10:38] LABS: IgA 263 mg/dL (85-499); IgG 491 mg/dL (610-1616); IgM 42 mg/dL (35-242); Kappa Free Light Chain 45.42 mg/dL (0.33-1.94); Lambda Free Light Chain <0.44 mg/dL (0.57-2.63)
[2024-04-14 13:12] LABS: Albumin 60.6 % (55.8-66.1); Albumin g/dL 3.9 g/dL (3.6-5.2); Comment (See Note); Monoclonal Spike 6.7 % (None Seen); Monoclonal Spike g/dL 0.4 g/dL (None Seen); Total Protein 6.5 g/dL (6.3-8.2)
== END 2024-04-13 10:29 | disposition home or self-care (01) ==
LOC: LBO 10:28
PROVIDERS: Visit Provider Internal Medicine Hematology & Oncology
DX: R06.09 Other forms of dyspnea (principal); Z79.899 Other long term (current) drug therapy; C90.02 Multiple myeloma in relapse; Z51.81 Encounter for therapeutic drug level monitoring
CPT/HCPCS: 36415; 80053; 82784; 83880; 83883; 84165; 85025

== ENCOUNTER 2024-04-27 03:42 | Outpatient (CLI) | payer MEDICARE, SELFPAY ==
[2024-04-27 09:25] LABS: HCT 36.1 % (36.0-46.0); HGB 11.4 g/dL (11.2-15.7); MCH 31.7 pg (27.0-33.0); MCHC 31.6 % (32.0-36.0); MCV 100 fL (80-95); RDW 13.9 % (11.7-14.6); RDW-SD 51.3 fL; WBC 8.35 10^3/uL (4.4-10.8)
[2024-04-27 09:26] LABS: Absolute Lymphocyte Count 0.84 10^3/uL (1.2-3.4); Lymphocytes % 10.1 %; MPV 8.8 fL (8.0-11.0); Neutrophils % 81.6 %; Platelet Count 346 10^3/uL (130-400)
[2024-04-27 09:27] LABS: Abs Immature Grans 0.04 10^3/uL (0.0-0.06); Absolute Basophil Count 0.04 10^3/uL (0.0-0.2); Absolute Eosinophil Count 0.07 10^3/uL (0.0-0.7); Absolute Monocyte Count 0.54 10^3/uL (0.1-0.8); Absolute Neutrophil Count 6.82 10^3/uL (1.2-6.7); Basophils % 0.5 %; Eosinophils % 0.8 %; Immature Grans % 0.5 %; Monocytes % 6.5 %
[2024-04-27 10:47] LABS: Albumin 3.6 g/dL (3.4-5.0); Alkaline Phosphatase 69 U/L (46-116); Anion Gap 8.1 mmol/L (3-11); BUN 21 mg/dL (7-18); Bilirubin, Total 0.55 mg/dL (0.2-1.0); CO2 27.9 mmol/L (21.0-32.0); CREATININE 1.4 mg/dL (0.55-1.02); Calcium 9.6 mg/dL (8.5-10.1); Chloride 100 mmol/L (98-107); Estimated GFR 38.99 (mL/min/1.73m2); Glucose 94 mg/dL (74-106); Potassium 3.6 mmol/L (3.5-5.1); Sodium 136 mmol/L (136-145); Total Protein 7.4 g/dL (6.4-8.2)
[2024-04-27 10:48] LABS: ALT 22 U/L (14-59); AST 21 U/L (15-37)
[2024-04-28 09:05] LABS: IgA 303 mg/dL (85-499); IgG 472 mg/dL (610-1616); IgM 35 mg/dL (35-242)
[2024-04-28 13:19] LABS: Albumin g/dL 4.1 g/dL (3.6-5.2); Comment (See Note); Monoclonal Spike 7.3 % (None Seen); Monoclonal Spike g/dL 0.5 g/dL (None Seen); Total Protein 6.9 g/dL (6.3-8.2)
== END 2024-04-27 03:43 | disposition home or self-care (01) ==
PROVIDERS: Visit Provider Internal Medicine Hematology & Oncology
DX: C90.02 Multiple myeloma in relapse (principal)
CPT/HCPCS: 36415; 80053; 82784; 84165; 85025

== ENCOUNTER 2024-05-11 07:14 | Outpatient (CLI) | payer MEDICARE, SELFPAY ==
[2024-05-11 07:24] LABS: Abs Immature Grans 0.03 10^3/uL (0.0-0.06); Absolute Basophil Count 0.04 10^3/uL (0.0-0.2); Absolute Eosinophil Count 0.14 10^3/uL (0.0-0.7); Absolute Lymphocyte Count 0.91 10^3/uL (1.2-3.4); Absolute Monocyte Count 0.43 10^3/uL (0.1-0.8); Absolute Neutrophil Count 4.21 10^3/uL (1.2-6.7); Basophils % 0.7 %; Eosinophils % 2.4 %; HCT 35.6 % (36.0-46.0); HGB 11.1 g/dL (11.2-15.7); Immature Grans % 0.5 %; Lymphocytes % 15.8 %; MCH 31.1 pg (27.0-33.0); MCHC 31.2 % (32.0-36.0); MCV 100 fL (80-95); MPV 8.4 fL (8.0-11.0); Monocytes % 7.5 %; Neutrophils % 73.1 %; Platelet Count 315 10^3/uL (130-400); RBC 3.57 10^6/uL (3.93-5.22); RDW-SD 51.4 fL; WBC 5.76 10^3/uL (4.4-10.8)
== END 2024-05-11 07:15 | disposition home or self-care (01) ==
PROVIDERS: Visit Provider Internal Medicine Hematology & Oncology
DX: C90.02 Multiple myeloma in relapse (principal)
CPT/HCPCS: 36415; 85025

== ENCOUNTER 2024-05-25 09:54 | Outpatient (CLI) | payer MEDICARE, SELFPAY ==
[2024-05-25 14:30] LABS: Abs Immature Grans 0.03 10^3/uL (0.0-0.06); Absolute Basophil Count 0.02 10^3/uL (0.0-0.2); Absolute Eosinophil Count 0.09 10^3/uL (0.0-0.7); Absolute Lymphocyte Count 0.82 10^3/uL (1.2-3.4); Absolute Monocyte Count 0.59 10^3/uL (0.1-0.8); Absolute Neutrophil Count 5.19 10^3/uL (1.2-6.7); Basophils % 0.3 %; Eosinophils % 1.3 %; HCT 34.5 % (36.0-46.0); HGB 10.9 g/dL (11.2-15.7); Immature Grans % 0.4 %; Lymphocytes % 12.2 %; MCH 31.3 pg (27.0-33.0); MCHC 31.6 % (32.0-36.0); MCV 99 fL (80-95); MPV 9.5 fL (8.0-11.0); Monocytes % 8.8 %; Platelet Count 235 10^3/uL (130-400); RBC 3.48 10^6/uL (3.93-5.22); RDW 15.2 % (11.7-14.6); RDW-SD 55.6 fL; WBC 6.74 10^3/uL (4.4-10.8)
== END 2024-05-25 09:55 | disposition home or self-care (01) ==
LOC: LBO 09:54
PROVIDERS: Visit Provider Internal Medicine Hematology & Oncology
DX: C90.00 Multiple myeloma not having achieved remission (principal)
CPT/HCPCS: 36415; 80053; 82784; 83883; 84165; 85025

== ENCOUNTER 2024-06-01 11:31 | Outpatient (CLI) | payer MEDICARE, SELFPAY ==
[2024-06-01 12:44] LABS: Abs Immature Grans 0.02 10^3/uL (0.0-0.06); Absolute Basophil Count 0.03 10^3/uL (0.0-0.2); Absolute Eosinophil Count 0.07 10^3/uL (0.0-0.7); Absolute Lymphocyte Count 0.89 10^3/uL (1.2-3.4); Absolute Monocyte Count 0.81 10^3/uL (0.1-0.8); Basophils % 0.4 %; HCT 33.8 % (36.0-46.0); HGB 10.6 g/dL (11.2-15.7); Immature Grans % 0.3 %; Lymphocytes % 12.7 %; MCH 31.4 pg (27.0-33.0); MCHC 31.4 % (32.0-36.0); MCV 100 fL (80-95); MPV 9.8 fL (8.0-11.0); Monocytes % 11.5 %; Neutrophils % 74.1 %; Platelet Count 219 10^3/uL (130-400); RBC 3.38 10^6/uL (3.93-5.22); RDW 16.4 % (11.7-14.6); RDW-SD 58.5 fL; WBC 7.02 10^3/uL (4.4-10.8)
[2024-06-01 13:15] LABS: ALT 21 U/L (14-59); AST 19 U/L (15-37); Albumin 3.5 g/dL (3.4-5.0); Alkaline Phosphatase 70 U/L (46-116); Anion Gap 10.6 mmol/L (3-11); BUN 28 mg/dL (7-18); Bilirubin, Total 0.61 mg/dL (0.2-1.0); CO2 27.4 mmol/L (21.0-32.0); CREATININE 1.4 mg/dL (0.55-1.02); Calcium 10.2 mg/dL (8.5-10.1); Chloride 101 mmol/L (98-107); Estimated GFR 38.99 (mL/min/1.73m2); Glucose 93 mg/dL (74-106); Potassium 3.8 mmol/L (3.5-5.1); Sodium 139 mmol/L (136-145); Total Protein 7.3 g/dL (6.4-8.2)
[2024-06-02 10:15] LABS: IgA 397 mg/dL (85-499); IgG 460 mg/dL (610-1616); IgM 35 mg/dL (35-242); Kappa Free Light Chain 72.47 mg/dL (0.33-1.94); Lambda Free Light Chain <0.44 mg/dL (0.57-2.63)
[2024-06-02 13:22] LABS: Albumin 59.7 % (55.8-66.1); Comment (See Note); Monoclonal Spike g/dL 0.7 g/dL (None Seen); Total Protein 6.7 g/dL (6.3-8.2)
== END 2024-06-01 11:32 | disposition home or self-care (01) ==
LOC: LBO 11:32
PROVIDERS: Visit Provider Internal Medicine Hematology & Oncology
DX: C90.00 Multiple myeloma not having achieved remission (principal)
CPT/HCPCS: 36415; 80053; 82784; 83883; 84165; 85025

== ENCOUNTER 2024-06-08 08:13 | Outpatient (CLI) | payer MEDICARE, SELFPAY ==
[2024-06-08 07:50] LABS: Abs Immature Grans 0.01 10^3/uL (0.0-0.06); Absolute Basophil Count 0.03 10^3/uL (0.0-0.2); Absolute Eosinophil Count 0.04 10^3/uL (0.0-0.7); Absolute Lymphocyte Count 0.75 10^3/uL (1.2-3.4); Absolute Neutrophil Count 2.86 10^3/uL (1.2-6.7); Basophils % 0.7 %; HCT 36.7 % (36.0-46.0); HGB 11.4 g/dL (11.2-15.7); Immature Grans % 0.2 %; Lymphocytes % 17.9 %; MCH 31.1 pg (27.0-33.0); MCHC 31.1 % (32.0-36.0); MCV 100 fL (80-95); MPV 8.7 fL (8.0-11.0); Monocytes % 11.9 %; Neutrophils % 68.3 %; Platelet Count 339 10^3/uL (130-400); RBC 3.67 10^6/uL (3.93-5.22); RDW 15.6 % (11.7-14.6); WBC 4.19 10^3/uL (4.4-10.8)
[2024-06-08 08:07] LABS: ALT 22 U/L (14-59); AST 21 U/L (15-37); Albumin 3.5 g/dL (3.4-5.0); Alkaline Phosphatase 73 U/L (46-116); Anion Gap 7.9 mmol/L (3-11); BUN 27 mg/dL (7-18); Bilirubin, Total 0.72 mg/dL (0.2-1.0); CO2 28.1 mmol/L (21.0-32.0); CREATININE 1.5 mg/dL (0.55-1.02); Calcium 9.5 mg/dL (8.5-10.1); Chloride 102 mmol/L (98-107); Estimated GFR 35.89 (mL/min/1.73m2); Glucose 96 mg/dL (74-106); Potassium 3.9 mmol/L (3.5-5.1); Sodium 138 mmol/L (136-145); Total Protein 7.5 g/dL (6.4-8.2)
[2024-06-09 10:28] LABS: IgA 468 mg/dL (85-499); IgG 475 mg/dL (610-1616); IgM 31 mg/dL (35-242); Kappa Free Light Chain 79.78 mg/dL (0.33-1.94); Lambda Free Light Chain <0.44 mg/dL (0.57-2.63)
[2024-06-09 14:03] LABS: Albumin g/dL 4.1 g/dL (3.6-5.2); Comment (See Note); Monoclonal Spike 10.2 % (None Seen); Monoclonal Spike g/dL 0.7 g/dL (None Seen)
== END 2024-06-08 08:14 | disposition home or self-care (01) ==
LOC: LBO 08:14
PROVIDERS: Visit Provider Internal Medicine Hematology & Oncology
DX: C90.00 Multiple myeloma not having achieved remission (principal)
CPT/HCPCS: 36415; 80053; 82784; 83883; 84165; 85025

== ENCOUNTER 2024-06-22 03:31 | Outpatient (CLI) | payer MEDICARE, SELFPAY ==
[2024-06-22 08:49] LABS: Abs Immature Grans 0.02 10^3/uL (0.0-0.06); Absolute Basophil Count 0.04 10^3/uL (0.0-0.2); Absolute Eosinophil Count 0.06 10^3/uL (0.0-0.7); Absolute Lymphocyte Count 0.93 10^3/uL (1.2-3.4); Absolute Monocyte Count 0.49 10^3/uL (0.1-0.8); Absolute Neutrophil Count 3.69 10^3/uL (1.2-6.7); Basophils % 0.8 %; Eosinophils % 1.1 %; HCT 35.1 % (36.0-46.0); HGB 11.2 g/dL (11.2-15.7); Immature Grans % 0.4 %; Lymphocytes % 17.8 %; MCH 31.2 pg (27.0-33.0); MCHC 31.9 % (32.0-36.0); MCV 98 fL (80-95); MPV 8.6 fL (8.0-11.0); Monocytes % 9.4 %; Neutrophils % 70.5 %; Platelet Count 310 10^3/uL (130-400); RBC 3.59 10^6/uL (3.93-5.22); RDW-SD 54.4 fL; WBC 5.23 10^3/uL (4.4-10.8)
[2024-06-22 09:17] LABS: ALT 20 U/L (14-59); AST 19 U/L (15-37); Albumin 3.5 g/dL (3.4-5.0); Alkaline Phosphatase 67 U/L (46-116); Anion Gap 10.4 mmol/L (3-11); BUN 30 mg/dL (7-18); Bilirubin, Total 0.47 mg/dL (0.2-1.0); CO2 26.6 mmol/L (21.0-32.0); CREATININE 1.8 mg/dL (0.55-1.02); Calcium 9.4 mg/dL (8.5-10.1); Chloride 102 mmol/L (98-107); Estimated GFR 28.84 (mL/min/1.73m2); Glucose 99 mg/dL (74-106); Potassium 3.5 mmol/L (3.5-5.1); Sodium 139 mmol/L (136-145); Total Protein 7.6 g/dL (6.4-8.2)
[2024-06-23 09:44] LABS: IgA 584 mg/dL (85-499); IgG 435 mg/dL (610-1616); IgM 25 mg/dL (35-242); Kappa Free Light Chain 102.14 mg/dL (0.33-1.94); Lambda Free Light Chain <0.44 mg/dL (0.57-2.63)
[2024-06-23 12:58] LABS: Albumin 57.3 % (55.8-66.1); Albumin g/dL 4.1 g/dL (3.6-5.2); Comment (See Note); Monoclonal Spike 11.5 % (None Seen); Monoclonal Spike g/dL 0.8 g/dL (None Seen); Total Protein 7.1 g/dL (6.3-8.2)
== END 2024-06-22 03:32 | disposition home or self-care (01) ==
PROVIDERS: Visit Provider Internal Medicine Hematology & Oncology
DX: C90.00 Multiple myeloma not having achieved remission (principal)
CPT/HCPCS: 36415; 80053; 82784; 83883; 84165; 85025

== ENCOUNTER 2024-07-12 07:35 | Outpatient (CLI) | payer MEDICARE, SELFPAY ==
[2024-07-12 07:49] LABS: Abs Immature Grans 0.02 10^3/uL (0.0-0.06); Absolute Basophil Count 0.02 10^3/uL (0.0-0.2); Absolute Eosinophil Count 0.05 10^3/uL (0.0-0.7); Absolute Lymphocyte Count 1.07 10^3/uL (1.2-3.4); Absolute Monocyte Count 0.74 10^3/uL (0.1-0.8); Absolute Neutrophil Count 3.24 10^3/uL (1.2-6.7); Basophils % 0.4 %; HCT 34.3 % (36.0-46.0); HGB 10.9 g/dL (11.2-15.7); Immature Grans % 0.4 %; Lymphocytes % 20.8 %; MCH 30.9 pg (27.0-33.0); MCHC 31.8 % (32.0-36.0); MCV 97 fL (80-95); MPV 8.8 fL (8.0-11.0); Monocytes % 14.4 %; Platelet Count 260 10^3/uL (130-400); RBC 3.53 10^6/uL (3.93-5.22); RDW 14.9 % (11.7-14.6); RDW-SD 53.1 fL; WBC 5.14 10^3/uL (4.4-10.8)
[2024-07-12 08:10] LABS: ALT 20 U/L (14-59); AST 19 U/L (15-37); Albumin 3.4 g/dL (3.4-5.0); Alkaline Phosphatase 72 U/L (46-116); Anion Gap 8.8 mmol/L (3-11); BUN 40 mg/dL (7-18); Bilirubin, Total 0.58 mg/dL (0.2-1.0); CO2 28.2 mmol/L (21.0-32.0); Calcium 9.3 mg/dL (8.5-10.1); Chloride 97 mmol/L (98-107); Estimated GFR 25.41 (mL/min/1.73m2); Glucose 86 mg/dL (74-106); Potassium 3.3 mmol/L (3.5-5.1); Sodium 134 mmol/L (136-145); Total Protein 7.7 g/dL (6.4-8.2)
[2024-07-14 09:38] LABS: IgA 665 mg/dL (85-499); IgG 406 mg/dL (610-1616); IgM 27 mg/dL (35-242); Kappa Free Light Chain 123.93 mg/dL (0.33-1.94); Lambda Free Light Chain <0.44 mg/dL (0.57-2.63)
[2024-07-17 14:22] LABS: Albumin 55.7 % (55.8-66.1); Comment (See Note); Monoclonal Spike 11.2 % (None Seen); Monoclonal Spike g/dL 0.8 g/dL (None Seen); Total Protein 7.2 g/dL (6.3-8.2)
== END 2024-07-12 07:36 | disposition home or self-care (01) ==
LOC: LBO 07:37
PROVIDERS: Visit Provider Internal Medicine Hematology & Oncology
DX: C90.00 Multiple myeloma not having achieved remission (principal)
CPT/HCPCS: 36415; 80053; 82784; 83883; 84165; 85025

== ENCOUNTER 2024-07-19 12:38 | Outpatient (CLI) | payer MEDICARE, SELFPAY ==
[2024-07-19 12:29] LABS: Absolute Basophil Count 0.02 10^3/uL (0.0-0.2); Absolute Lymphocyte Count 0.63 10^3/uL (1.2-3.4); Absolute Monocyte Count 0.68 10^3/uL (0.1-0.8); Absolute Neutrophil Count 7.87 10^3/uL (1.2-6.7); Basophils % 0.2 %; Eosinophils % 1.1 %; HCT 33.5 % (36.0-46.0); HGB 10.8 g/dL (11.2-15.7); Immature Grans % 1.1 %; Lymphocytes % 6.7 %; MCH 31.3 pg (27.0-33.0); MCHC 32.2 % (32.0-36.0); MCV 97 fL (80-95); MPV 10.1 fL (8.0-11.0); Monocytes % 7.2 %; Neutrophils % 83.7 %; Platelet Count 215 10^3/uL (130-400); RBC 3.45 10^6/uL (3.93-5.22); RDW 15.1 % (11.7-14.6); RDW-SD 51.8 fL
[2024-07-19 13:00] LABS: ALT 20 U/L (14-59); AST 21 U/L (15-37); Albumin 3.3 g/dL (3.4-5.0); Alkaline Phosphatase 65 U/L (46-116); Anion Gap 11.1 mmol/L (3-11); BUN 25 mg/dL (7-18); Bilirubin, Total 0.65 mg/dL (0.2-1.0); CO2 28.9 mmol/L (21.0-32.0); CREATININE 1.7 mg/dL (0.55-1.02); Calcium 9.6 mg/dL (8.5-10.1); Chloride 93 mmol/L (98-107); Estimated GFR 30.89 (mL/min/1.73m2); Glucose 99 mg/dL (74-106); Potassium 3.3 mmol/L (3.5-5.1); Sodium 133 mmol/L (136-145); Total Protein 7.3 g/dL (6.4-8.2)
[2024-07-20 11:39] LABS: IgA 480 mg/dL (85-499); IgG 389 mg/dL (610-1616); IgM 22 mg/dL (35-242); Kappa Free Light Chain 86.49 mg/dL (0.33-1.94); Lambda Free Light Chain <0.44 mg/dL (0.57-2.63)
[2024-07-20 13:43] LABS: Albumin 57.1 % (55.8-66.1); Albumin g/dL 3.8 g/dL (3.6-5.2); Comment (See Note); Monoclonal Spike 8.9 % (None Seen); Monoclonal Spike g/dL 0.6 g/dL (None Seen); Total Protein 6.6 g/dL (6.3-8.2)
== END 2024-07-19 12:39 | disposition home or self-care (01) ==
LOC: LBO 12:39
PROVIDERS: Visit Provider Internal Medicine Hematology & Oncology
DX: C90.00 Multiple myeloma not having achieved remission (principal)
CPT/HCPCS: 36415; 80053; 82784; 83883; 84165; 85025

== ENCOUNTER 2024-07-26 07:57 | Outpatient (CLI) | payer MEDICARE, SELFPAY ==
[2024-07-26 07:54] LABS: Abs Immature Grans 0.05 10^3/uL (0.0-0.06); Absolute Basophil Count 0.01 10^3/uL (0.0-0.2); Absolute Eosinophil Count 0.16 10^3/uL (0.0-0.7); Absolute Monocyte Count 0.75 10^3/uL (0.1-0.8); Absolute Neutrophil Count 4.83 10^3/uL (1.2-6.7); Basophils % 0.2 %; Eosinophils % 2.5 %; HGB 9.9 g/dL (11.2-15.7); Immature Grans % 0.8 %; Lymphocytes % 7.9 %; MCH 31.4 pg (27.0-33.0); MCHC 31.9 % (32.0-36.0); MCV 98 fL (80-95); MPV 8.8 fL (8.0-11.0); Monocytes % 11.9 %; Neutrophils % 76.7 %; Platelet Count 222 10^3/uL (130-400); RBC 3.15 10^6/uL (3.93-5.22); RDW 14.9 % (11.7-14.6); RDW-SD 53.7 fL
[2024-07-26 08:15] LABS: ALT 16 U/L (14-59); AST 16 U/L (15-37); Albumin 2.9 g/dL (3.4-5.0); Alkaline Phosphatase 61 U/L (46-116); Anion Gap 8.4 mmol/L (3-11); BUN 24 mg/dL (7-18); Bilirubin, Total 0.85 mg/dL (0.2-1.0); CO2 28.6 mmol/L (21.0-32.0); CREATININE 1.6 mg/dL (0.55-1.02); Calcium 9.1 mg/dL (8.5-10.1); Chloride 99 mmol/L (98-107); Estimated GFR 33.22 (mL/min/1.73m2); Glucose 114 mg/dL (74-106); Potassium 3.7 mmol/L (3.5-5.1); Sodium 136 mmol/L (136-145); Total Protein 7.2 g/dL (6.4-8.2)
[2024-07-27 11:10] LABS: IgA 392 mg/dL (85-499); IgG 347 mg/dL (610-1616); IgM 17 mg/dL (35-242); Kappa Free Light Chain 73.28 mg/dL (0.33-1.94); Lambda Free Light Chain <0.44 mg/dL (0.57-2.63)
[2024-07-27 13:57] LABS: Albumin 53.8 % (55.8-66.1); Albumin g/dL 3.3 g/dL (3.6-5.2); Comment (See Note); Monoclonal Spike 7.4 % (None Seen); Monoclonal Spike g/dL 0.5 g/dL (None Seen); Total Protein 6.1 g/dL (6.3-8.2)
== END 2024-07-26 07:58 | disposition home or self-care (01) ==
LOC: LBO 07:58
PROVIDERS: Visit Provider Internal Medicine Hematology & Oncology
DX: C90.00 Multiple myeloma not having achieved remission (principal)
CPT/HCPCS: 36415; 80053; 82784; 83883; 84165; 85025

== ENCOUNTER 2024-08-18 13:47 | Outpatient (CLI) | payer MEDICARE, SELFPAY ==
[2024-08-18 12:37] LABS: Abs Immature Grans 0.04 10^3/uL (0.0-0.06); Absolute Basophil Count 0.07 10^3/uL (0.0-0.2); Absolute Eosinophil Count 0.15 10^3/uL (0.0-0.7); Absolute Lymphocyte Count 0.89 10^3/uL (1.2-3.4); Absolute Neutrophil Count 5.34 10^3/uL (1.2-6.7); Eosinophils % 2.1 %; HCT 36.6 % (36.0-46.0); HGB 11.4 g/dL (11.2-15.7); Immature Grans % 0.6 %; Lymphocytes % 12.7 %; MCH 30.2 pg (27.0-33.0); MCHC 31.1 % (32.0-36.0); MCV 97 fL (80-95); MPV 9.5 fL (8.0-11.0); Monocytes % 7.2 %; Neutrophils % 76.4 %; Platelet Count 273 10^3/uL (130-400); RBC 3.77 10^6/uL (3.93-5.22); RDW-SD 56.7 fL; WBC 6.99 10^3/uL (4.4-10.8)
[2024-08-18 12:54] LABS: ALT 20 U/L (14-59); AST 15 U/L (15-37); Albumin 3.2 g/dL (3.4-5.0); Alkaline Phosphatase 73 U/L (46-116); Anion Gap 5.7 mmol/L (3-11); BUN 28 mg/dL (7-18); Bilirubin, Total 0.29 mg/dL (0.2-1.0); CO2 33.3 mmol/L (21.0-32.0); CREATININE 1.5 mg/dL (0.55-1.02); Calcium 9.8 mg/dL (8.5-10.1); Chloride 100 mmol/L (98-107); Estimated GFR 35.89 (mL/min/1.73m2); Glucose 84 mg/dL (74-106); Potassium 4.1 mmol/L (3.5-5.1); Sodium 139 mmol/L (136-145)
[2024-08-21 10:46] LABS: IgA 477 mg/dL (85-499); IgG 354 mg/dL (610-1616); IgM 32 mg/dL (35-242); Kappa Free Light Chain 83.16 mg/dL (0.33-1.94); Lambda Free Light Chain <0.44 mg/dL (0.57-2.63)
[2024-08-21 12:27] LABS: Albumin 55.8 % (55.8-66.1); Albumin g/dL 3.7 g/dL (3.6-5.2); Comment (See Note); Monoclonal Spike 8.6 % (None Seen); Monoclonal Spike g/dL 0.6 g/dL (None Seen); Total Protein 6.6 g/dL (6.3-8.2)
== END 2024-08-18 13:48 | disposition home or self-care (01) ==
LOC: LBO 13:48
PROVIDERS: Visit Provider Internal Medicine Hematology & Oncology
DX: C90.00 Multiple myeloma not having achieved remission (principal)
CPT/HCPCS: 36415; 80053; 82784; 83883; 84165; 85025

== ENCOUNTER 2024-08-23 04:10 | Outpatient (CLI) | payer MEDICARE, SELFPAY ==
[2024-08-23 13:11] LABS: Abs Immature Grans 0.06 10^3/uL (0.0-0.06); Absolute Basophil Count 0.06 10^3/uL (0.0-0.2); Absolute Lymphocyte Count 0.77 10^3/uL (1.2-3.4); Absolute Monocyte Count 0.67 10^3/uL (0.1-0.8); Absolute Neutrophil Count 6.69 10^3/uL (1.2-6.7); Basophils % 0.7 %; Eosinophils % 3.5 %; HCT 39.6 % (36.0-46.0); HGB 12.3 g/dL (11.2-15.7); Immature Grans % 0.7 %; MCH 29.9 pg (27.0-33.0); MCHC 31.1 % (32.0-36.0); MCV 96 fL (80-95); MPV 9.5 fL (8.0-11.0); Monocytes % 7.8 %; Neutrophils % 78.3 %; Nucleated RBC 0.4 % (0.0-0.3); Platelet Count 250 10^3/uL (130-400); RBC 4.11 10^6/uL (3.93-5.22); RDW 16.1 % (11.7-14.6); RDW-SD 56.8 fL; WBC 8.55 10^3/uL (4.4-10.8)
[2024-08-23 13:33] LABS: ALT 18 U/L (14-59); AST 15 U/L (15-37); Albumin 3.3 g/dL (3.4-5.0); Alkaline Phosphatase 73 U/L (46-116); Anion Gap 9.7 mmol/L (3-11); BUN 33 mg/dL (7-18); Bilirubin, Total 0.58 mg/dL (0.2-1.0); CO2 29.3 mmol/L (21.0-32.0); CREATININE 1.8 mg/dL (0.55-1.02); Calcium 10.5 mg/dL (8.5-10.1); Chloride 99 mmol/L (98-107); Estimated GFR 28.84 (mL/min/1.73m2); Glucose 92 mg/dL (74-106); Sodium 138 mmol/L (136-145); Total Protein 7.4 g/dL (6.4-8.2)
[2024-08-24 11:35] LABS: IgA 551 mg/dL (85-499); IgG 374 mg/dL (610-1616); IgM 26 mg/dL (35-242); Kappa Free Light Chain 107.79 mg/dL (0.33-1.94); Lambda Free Light Chain <0.44 mg/dL (0.57-2.63)
[2024-08-24 13:11] LABS: Albumin 55.4 % (55.8-66.1); Albumin g/dL 3.9 g/dL (3.6-5.2); Comment (See Note); Monoclonal Spike 9.4 % (None Seen); Monoclonal Spike g/dL 0.7 g/dL (None Seen)
== END 2024-08-23 04:11 | disposition home or self-care (01) ==
LOC: LBO 04:10
PROVIDERS: Visit Provider Internal Medicine Hematology & Oncology
DX: C90.00 Multiple myeloma not having achieved remission (principal)
CPT/HCPCS: 36415; 80053; 82784; 83883; 84165; 85025

== ENCOUNTER 2024-09-06 01:53 | Outpatient (CLI) | payer MEDICARE, SELFPAY ==
[2024-09-06 12:25] LABS: Abs Immature Grans 0.02 10^3/uL (0.0-0.06); Absolute Basophil Count 0.09 10^3/uL (0.0-0.2); Absolute Eosinophil Count 0.18 10^3/uL (0.0-0.7); Absolute Lymphocyte Count 0.93 10^3/uL (1.2-3.4); Absolute Monocyte Count 0.84 10^3/uL (0.1-0.8); Absolute Neutrophil Count 5.86 10^3/uL (1.2-6.7); Basophils % 1.1 %; Eosinophils % 2.3 %; HGB 10.9 g/dL (11.2-15.7); Immature Grans % 0.3 %; Lymphocytes % 11.7 %; MCH 30.2 pg (27.0-33.0); MCHC 32.1 % (32.0-36.0); MCV 94 fL (80-95); MPV 8.5 fL (8.0-11.0); Monocytes % 10.6 %; Platelet Count 452 10^3/uL (130-400); RBC 3.61 10^6/uL (3.93-5.22); RDW 15.8 % (11.7-14.6); RDW-SD 54.7 fL; WBC 7.92 10^3/uL (4.4-10.8)
[2024-09-06 12:50] LABS: ALT 16 U/L (14-59); AST 15 U/L (15-37); Albumin 3.2 g/dL (3.4-5.0); Alkaline Phosphatase 73 U/L (46-116); Anion Gap 7.7 mmol/L (3-11); BUN 26 mg/dL (7-18); Bilirubin, Total 0.47 mg/dL (0.2-1.0); CO2 31.3 mmol/L (21.0-32.0); CREATININE 1.6 mg/dL (0.55-1.02); Calcium 9.8 mg/dL (8.5-10.1); Chloride 99 mmol/L (98-107); Estimated GFR 33.22 (mL/min/1.73m2); Glucose 92 mg/dL (74-106); Potassium 3.7 mmol/L (3.5-5.1); Sodium 138 mmol/L (136-145); Total Protein 7.5 g/dL (6.4-8.2)
[2024-09-07 13:09] LABS: IgA 524 mg/dL (85-499); IgG 347 mg/dL (610-1616); IgM 26 mg/dL (35-242); Kappa Free Light Chain 97.06 mg/dL (0.33-1.94); Lambda Free Light Chain <0.44 mg/dL (0.57-2.63)
[2024-09-07 14:01] LABS: Albumin 52.8 % (55.8-66.1); Albumin g/dL 3.6 g/dL (3.6-5.2); Comment (See Note); Monoclonal Spike 8.5 % (None Seen); Monoclonal Spike g/dL 0.6 g/dL (None Seen); Total Protein 6.8 g/dL (6.3-8.2)
== END 2024-09-06 01:54 | disposition home or self-care (01) ==
LOC: LBO 01:53
PROVIDERS: Visit Provider Internal Medicine Hematology & Oncology
DX: C90.00 Multiple myeloma not having achieved remission (principal)
CPT/HCPCS: 36415; 80053; 82784; 83883; 84165; 85025

== ENCOUNTER 2024-09-28 03:13 | Outpatient (CLI) | payer MEDICARE, SELFPAY ==
[2024-09-28 09:52] LABS: Abs Immature Grans 0.01 10^3/uL (0.0-0.06); Absolute Basophil Count 0.07 10^3/uL (0.0-0.2); Absolute Eosinophil Count 0.37 10^3/uL (0.0-0.7); Absolute Lymphocyte Count 0.55 10^3/uL (1.2-3.4); Absolute Neutrophil Count 2.45 10^3/uL (1.2-6.7); Basophils % 1.8 %; Eosinophils % 9.4 %; HCT 35.7 % (36.0-46.0); HGB 11.1 g/dL (11.2-15.7); Immature Grans % 0.3 %; Lymphocytes % 13.9 %; MCH 30.1 pg (27.0-33.0); MCHC 31.1 % (32.0-36.0); MCV 97 fL (80-95); MPV 9.4 fL (8.0-11.0); Monocytes % 12.7 %; Neutrophils % 61.9 %; Platelet Count 298 10^3/uL (130-400); RBC 3.69 10^6/uL (3.93-5.22); RDW 16.7 % (11.7-14.6); RDW-SD 60.1 fL; WBC 3.95 10^3/uL (4.4-10.8)
[2024-09-28 10:28] LABS: ALT 18 U/L (14-59); AST 11 U/L (15-37); Albumin 3.1 g/dL (3.4-5.0); Alkaline Phosphatase 71 U/L (46-116); Anion Gap 8.7 mmol/L (3-11); BUN 29 mg/dL (7-18); Bilirubin, Total 0.45 mg/dL (0.2-1.0); CO2 29.3 mmol/L (21.0-32.0); CREATININE 1.9 mg/dL (0.55-1.02); Calcium 9.6 mg/dL (8.5-10.1); Chloride 101 mmol/L (98-107); Estimated GFR 27.03 (mL/min/1.73m2); Glucose 116 mg/dL (74-106); Potassium 3.6 mmol/L (3.5-5.1); Sodium 139 mmol/L (136-145); Total Protein 7.2 g/dL (6.4-8.2)
[2024-09-29 09:07] LABS: IgA 553 mg/dL (85-499); IgG 335 mg/dL (610-1616); IgM 28 mg/dL (35-242); Kappa Free Light Chain 96.09 mg/dL (0.33-1.94); Lambda Free Light Chain <0.44 mg/dL (0.57-2.63)
[2024-09-29 12:56] LABS: Albumin 54.8 % (55.8-66.1); Albumin g/dL 3.6 g/dL (3.6-5.2); Comment (See Note); Monoclonal Spike 11.1 % (None Seen); Monoclonal Spike g/dL 0.7 g/dL (None Seen); Total Protein 6.6 g/dL (6.3-8.2)
== END 2024-09-28 03:14 | disposition home or self-care (01) ==
LOC: LBO 03:13
PROVIDERS: Visit Provider Internal Medicine Hematology & Oncology
DX: C90.00 Multiple myeloma not having achieved remission (principal)
CPT/HCPCS: 36415; 80053; 82784; 83883; 84165; 85025

== ENCOUNTER 2024-10-20 00:59 | Outpatient (CLI) | payer MEDICARE, SELFPAY ==
[2024-10-20 10:47] LABS: Abs Immature Grans 0.03 10^3/uL (0.0-0.06); Absolute Basophil Count 0.15 10^3/uL (0.0-0.2); Absolute Eosinophil Count 0.22 10^3/uL (0.0-0.7); Absolute Lymphocyte Count 0.37 10^3/uL (1.2-3.4); Absolute Monocyte Count 0.59 10^3/uL (0.1-0.8); Absolute Neutrophil Count 8.43 10^3/uL (1.2-6.7); Basophils % 1.5 %; Eosinophils % 2.2 %; HCT 29.1 % (36.0-46.0); HGB 9.6 g/dL (11.2-15.7); Immature Grans % 0.3 %; Lymphocytes % 3.8 %; MCH 30.2 pg (27.0-33.0); MCV 92 fL (80-95); MPV 8.5 fL (8.0-11.0); Neutrophils % 86.2 %; Platelet Count 423 10^3/uL (130-400); RBC 3.18 10^6/uL (3.93-5.22); RDW 18.6 % (11.7-14.6); RDW-SD 62.2 fL; WBC 9.79 10^3/uL (4.4-10.8)
[2024-10-20 11:00] LABS: Anion Gap 12.2 mmol/L (3-11); BUN 26 mg/dL (7-18); CO2 23.8 mmol/L (21.0-32.0); CREATININE 2.5 mg/dL (0.55-1.02); Calcium 8.7 mg/dL (8.5-10.1); Chloride 98 mmol/L (98-107); Estimated GFR 19.44 (mL/min/1.73m2); Glucose 107 mg/dL (74-106); Potassium 3.2 mmol/L (3.5-5.1); Sodium 134 mmol/L (136-145)
[2024-10-20 11:12] LABS: ALT 35 U/L (14-59); AST 33 U/L (15-37); Alkaline Phosphatase 121 U/L (46-116); Bilirubin, Total 0.4 mg/dL (0.2-1.0); Total Protein 6.7 g/dL (6.4-8.2)
[2024-10-23 10:48] LABS: IgA 230 mg/dL (85-499); IgG 244 mg/dL (610-1616); IgM 18 mg/dL (35-242); Kappa Free Light Chain 25.07 mg/dL (0.33-1.94); Lambda Free Light Chain <0.44 mg/dL (0.57-2.63)
[2024-10-23 15:44] LABS: Albumin 55.8 % (55.8-66.1); Albumin g/dL 3.3 g/dL (3.6-5.2); Comment (See Note); Monoclonal Spike 6.9 % (None Seen); Monoclonal Spike g/dL 0.4 g/dL (None Seen); Total Protein 5.9 g/dL (6.3-8.2)
[2024-12-18 09:34] LABS: Immunotyping, Serum (See Note)
== END 2024-10-20 01:00 | disposition home or self-care (01) ==
PROVIDERS: Visit Provider Internal Medicine Hematology & Oncology
DX: C90.00 Multiple myeloma not having achieved remission (principal)
CPT/HCPCS: 36415; 80053; 82784; 83883; 84165; 85025; 86320

== ENCOUNTER 2025-01-31 09:07 | Outpatient (CLI) | payer MEDICARE, SELFPAY ==
[2025-01-31 09:25] LABS: Abs Immature Grans 0.02 10^3/uL (0.0-0.06); Absolute Basophil Count 0.04 10^3/uL (0.0-0.2); Absolute Eosinophil Count 0.23 10^3/uL (0.0-0.7); Absolute Lymphocyte Count 0.66 10^3/uL (1.2-3.4); Absolute Monocyte Count 0.63 10^3/uL (0.1-0.8); Absolute Neutrophil Count 5.15 10^3/uL (1.2-6.7); Basophils % 0.6 %; Eosinophils % 3.4 %; HCT 31.1 % (36.0-46.0); HGB 9.1 g/dL (11.2-15.7); Immature Grans % 0.3 %; Lymphocytes % 9.8 %; MCH 23.2 pg (27.0-33.0); MCHC 29.3 % (32.0-36.0); MCV 79 fL (80-95); MPV 8.5 fL (8.0-11.0); Monocytes % 9.4 %; Neutrophils % 76.5 %; Platelet Count 484 10^3/uL (130-400); RBC 3.92 10^6/uL (3.93-5.22); RDW 19.7 % (11.7-14.6); RDW-SD 56.3 fL; WBC 6.73 10^3/uL (4.4-10.8)
[2025-01-31 09:53] LABS: ALT 30 U/L (14-59); AST 20 U/L (15-37); Albumin 2.8 g/dL (3.4-5.0); Alkaline Phosphatase 135 U/L (46-116); Anion Gap 7.9 mmol/L (3-11); BUN 18 mg/dL (7-18); Bilirubin, Total 0.4 mg/dL (0.2-1.0); CO2 28.1 mmol/L (21.0-32.0); Calcium 9.1 mg/dL (8.5-10.1); Chloride 103 mmol/L (98-107); Estimated GFR 58.39 (mL/min/1.73m2); Glucose 87 mg/dL (74-106); Potassium 4.1 mmol/L (3.5-5.1); Sodium 139 mmol/L (136-145); Total Protein 6.8 g/dL (6.4-8.2)
[2025-02-01 09:54] LABS: IgA <13 mg/dL (85-499); IgG 380 mg/dL (610-1616); IgM 27 mg/dL (35-242); Kappa Free Light Chain 0.31 mg/dL (0.33-1.94); Lambda Free Light Chain <0.44 mg/dL (0.57-2.63)
[2025-02-05 16:17] LABS: Albumin 51.5 % (55.8-66.1); Albumin g/dL 2.9 g/dL (3.6-5.2); Comment (See Note); Total Protein 5.7 g/dL (6.3-8.2)
[2025-02-05 16:29] LABS: Immunotyping, Serum (See Note)
== END 2025-01-31 09:08 | disposition home or self-care (01) ==
LOC: LBO 09:07
PROVIDERS: Visit Provider Internal Medicine Hematology & Oncology
DX: C90.00 Multiple myeloma not having achieved remission (principal)
CPT/HCPCS: 36415; 80053; 82784; 83883; 84165; 85025; 86320

== ENCOUNTER 2025-02-14 09:57 | Outpatient (CLI) | payer MEDICARE, SELFPAY ==
[2025-02-14 10:05] LABS: Abs Immature Grans 0.06 10^3/uL (0.0-0.06); HCT 29.8 % (36.0-46.0); HGB 8.8 g/dL (11.2-15.7); Immature Grans % 0.7 %; MCH 22.3 pg (27.0-33.0); MCHC 29.5 % (32.0-36.0); MCV 75 fL (80-95); MPV 8.4 fL (8.0-11.0); Platelet Count 550 10^3/uL (130-400); RBC 3.95 10^6/uL (3.93-5.22); RDW 19.8 % (11.7-14.6); RDW-SD 53.9 fL; WBC 8.25 10^3/uL (4.4-10.8)
[2025-02-14 10:37] LABS: ALT 25 U/L (14-59); AST 16 U/L (15-37); Albumin 2.7 g/dL (3.4-5.0); Alkaline Phosphatase 140 U/L (46-116); Anion Gap 8.8 mmol/L (3-11); BUN 25 mg/dL (7-18); Bilirubin, Total 0.4 mg/dL (0.2-1.0); CO2 27.2 mmol/L (21.0-32.0); Calcium 9.1 mg/dL (8.5-10.1); Chloride 99 mmol/L (98-107); Estimated GFR 58.39 (mL/min/1.73m2); Glucose 89 mg/dL (74-106); Potassium 4.4 mmol/L (3.5-5.1); Sodium 135 mmol/L (136-145); Total Protein 6.7 g/dL (6.4-8.2)
[2025-02-14 17:41] LABS: Total Protein 5.7 g/dL (6.3-8.2)
[2025-02-15 10:08] LABS: Kappa Free Light Chain 0.42 mg/dL (0.33-1.94); Lambda Free Light Chain <0.44 mg/dL (0.57-2.63)
[2025-02-15 13:54] LABS: Albumin 50.4 % (55.8-66.1); Albumin g/dL 2.9 g/dL (3.6-5.2); Alpha 1 g/dL 0.60 g/dL (0.15-0.40); Alpha 2 g/dL 1.20 g/dL (0.50-1.00); Beta g/dL 0.70 g/dL (0.60-1.20); Gamma g/dL 0.40 g/dL (0.60-1.60)
== END 2025-02-14 09:58 | disposition home or self-care (01) ==
LOC: LBO 09:58
PROVIDERS: Visit Provider Internal Medicine Hematology & Oncology
DX: C90.00 Multiple myeloma not having achieved remission (principal)
CPT/HCPCS: 36415; 80053; 82784; 83883; 84165; 85025

== ENCOUNTER 2025-02-28 12:00 | Outpatient (CLI) | payer MEDICARE, SELFPAY ==
[2025-02-28 12:22] LABS: Abs Immature Grans 0.03 10^3/uL (0.0-0.06); HCT 29.3 % (36.0-46.0); HGB 8.5 g/dL (11.2-15.7); Immature Grans % 0.4 %; MCH 21.7 pg (27.0-33.0); MCHC 29.0 % (32.0-36.0); MCV 75 fL (80-95); MPV 8.4 fL (8.0-11.0); Platelet Count 629 10^3/uL (130-400); RBC 3.92 10^6/uL (3.93-5.22); RDW 20.1 % (11.7-14.6); RDW-SD 54.3 fL; WBC 7.38 10^3/uL (4.4-10.8)
[2025-02-28 12:41] LABS: Anisocytosis 2+; Hypochromasia 1+; Microcytosis 1+; Ovalocytes 2+
[2025-02-28 12:55] LABS: ALT 19 U/L (14-59); AST 17 U/L (15-37); Albumin 2.9 g/dL (3.4-5.0); Alkaline Phosphatase 154 U/L (46-116); Anion Gap 10.9 mmol/L (3-11); BUN 24 mg/dL (7-18); Bilirubin, Total 0.3 mg/dL (0.2-1.0); CO2 26.1 mmol/L (21.0-32.0); Calcium 9.2 mg/dL (8.5-10.1); Chloride 101 mmol/L (98-107); Estimated GFR 66.26 (mL/min/1.73m2); Glucose 86 mg/dL (74-106); Potassium 4.4 mmol/L (3.5-5.1); Sodium 138 mmol/L (136-145); Total Protein 6.8 g/dL (6.4-8.2)
[2025-02-28 13:50] LABS: Calculated LDL 73 mg/dL (<100); Cholesterol 132 mg/dL (<200); HDL Cholesterol 41 mg/dL (>or=50); Triglyceride 94 mg/dL (<150)
[2025-02-28 22:09] LABS: Total Protein 5.8 g/dL (6.3-8.2)
[2025-03-01 10:27] LABS: Kappa Free Light Chain 2.87 mg/dL (0.33-1.94); Lambda Free Light Chain <0.44 mg/dL (0.57-2.63)
[2025-03-01 13:23] LABS: Albumin 52.5 % (55.8-66.1); Albumin g/dL 3.0 g/dL (3.6-5.2); Alpha 1 g/dL 0.50 g/dL (0.15-0.40); Alpha 2 g/dL 1.10 g/dL (0.50-1.00); Beta g/dL 0.70 g/dL (0.60-1.20); Gamma g/dL 0.40 g/dL (0.60-1.60)
== END 2025-02-28 12:01 | disposition home or self-care (01) ==
LOC: LBO 12:01
PROVIDERS: Nurse Practitioner Adult Health; Visit Provider Internal Medicine Hematology & Oncology
DX: C90.00 Multiple myeloma not having achieved remission (principal); E78.5 Hyperlipidemia, unspecified
CPT/HCPCS: 36415; 80053; 80061; 82784; 83883; 84165; 85025

== ENCOUNTER 2025-03-14 10:35 | Outpatient (CLI) | payer MEDICARE, SELFPAY ==
[2025-03-14 10:57] LABS: Abs Immature Grans 0.03 10^3/uL (0.0-0.06); HCT 31.9 % (36.0-46.0); HGB 9.1 g/dL (11.2-15.7); Immature Grans % 0.4 %; MCH 21.0 pg (27.0-33.0); MCHC 28.5 % (32.0-36.0); MCV 74 fL (80-95); MPV 8.7 fL (8.0-11.0); Platelet Count 455 10^3/uL (130-400); RBC 4.34 10^6/uL (3.93-5.22); RDW 20.7 % (11.7-14.6); RDW-SD 54.4 fL; WBC 6.76 10^3/uL (4.4-10.8)
[2025-03-14 11:11] LABS: ALT 22 U/L (14-59); AST 22 U/L (15-37); Albumin 3.1 g/dL (3.4-5.0); Alkaline Phosphatase 157 U/L (46-116); Anion Gap 7.0 mmol/L (3-11); BUN 17 mg/dL (7-18); Bilirubin, Total 0.4 mg/dL (0.2-1.0); CO2 29.0 mmol/L (21.0-32.0); Calcium 8.9 mg/dL (8.5-10.1); Chloride 102 mmol/L (98-107); Estimated GFR 58.02 (mL/min/1.73m2); Glucose 86 mg/dL (74-106); Potassium 4.3 mmol/L (3.5-5.1); Sodium 138 mmol/L (136-145); Total Protein 6.7 g/dL (6.4-8.2)
[2025-03-14 14:30] LABS: Ferritin 136 ng/mL (8-252)
[2025-03-14 17:31] LABS: Total Protein 6.0 g/dL (6.3-8.2)
[2025-03-15 10:04] LABS: Kappa Free Light Chain 0.79 mg/dL (0.33-1.94); Lambda Free Light Chain <0.44 mg/dL (0.57-2.63)
[2025-03-15 12:37] LABS: Albumin 55.5 % (55.8-66.1); Albumin g/dL 3.3 g/dL (3.6-5.2); Alpha 1 g/dL 0.50 g/dL (0.15-0.40); Alpha 2 g/dL 1.00 g/dL (0.50-1.00); Beta g/dL 0.70 g/dL (0.60-1.20); Gamma g/dL 0.40 g/dL (0.60-1.60)
== END 2025-03-14 10:36 | disposition home or self-care (01) ==
LOC: LBO 10:35
PROVIDERS: Visit Provider Internal Medicine Hematology & Oncology
DX: C90.00 Multiple myeloma not having achieved remission (principal); C90.02 Multiple myeloma in relapse
CPT/HCPCS: 36415; 80053; 82784; 82728; 83883; 84165; 85025

== ENCOUNTER 2025-03-28 13:24 | Outpatient (CLI) | payer MEDICARE, SELFPAY ==
[2025-03-28 10:22] LABS: Abs Immature Grans 0.02 10^3/uL (0.0-0.06); HCT 31.5 % (36.0-46.0); HGB 9.0 g/dL (11.2-15.7); Immature Grans % 0.3 %; MCH 21.2 pg (27.0-33.0); MCHC 28.6 % (32.0-36.0); MCV 74 fL (80-95); MPV 9.0 fL (8.0-11.0); Platelet Count 456 10^3/uL (130-400); RBC 4.25 10^6/uL (3.93-5.22); RDW 20.7 % (11.7-14.6); RDW-SD 55.0 fL; WBC 6.55 10^3/uL (4.4-10.8)
[2025-03-28 10:40] LABS: Anisocytosis 2+; Microcytosis 1+
[2025-03-28 11:08] LABS: ALT 15 U/L (14-59); AST 16 U/L (15-37); Albumin 3.0 g/dL (3.4-5.0); Alkaline Phosphatase 150 U/L (46-116); Anion Gap 9.0 mmol/L (3-11); BUN 24 mg/dL (7-18); Bilirubin, Total 0.4 mg/dL (0.2-1.0); CO2 26.0 mmol/L (21.0-32.0); Calcium 9.0 mg/dL (8.5-10.1); Chloride 102 mmol/L (98-107); Estimated GFR 51.75 (mL/min/1.73m2); Glucose 90 mg/dL (74-106); Potassium 4.2 mmol/L (3.5-5.1); Sodium 137 mmol/L (136-145); Total Protein 6.8 g/dL (6.4-8.2)
[2025-03-28 17:32] LABS: Total Protein 5.9 g/dL (6.3-8.2)
[2025-03-29 11:26] LABS: Kappa Free Light Chain 1.40 mg/dL (0.33-1.94); Lambda Free Light Chain 0.64 mg/dL (0.57-2.63)
[2025-03-29 13:57] LABS: Albumin 54.6 % (55.8-66.1); Albumin g/dL 3.2 g/dL (3.6-5.2); Alpha 1 g/dL 0.50 g/dL (0.15-0.40); Alpha 2 g/dL 1.00 g/dL (0.50-1.00); Beta g/dL 0.70 g/dL (0.60-1.20); Gamma g/dL 0.40 g/dL (0.60-1.60)
== END 2025-03-28 13:25 | disposition home or self-care (01) ==
LOC: LBO 13:25
PROVIDERS: Visit Provider Internal Medicine Hematology & Oncology
DX: C90.00 Multiple myeloma not having achieved remission (principal)
CPT/HCPCS: 36415; 80053; 82784; 83883; 84165; 85025

== ENCOUNTER 2025-04-11 09:14 | Outpatient (CLI) | payer MEDICARE, SELFPAY ==
[2025-04-11 10:24] LABS: Abs Immature Grans 0.05 10^3/uL (0.0-0.06); HCT 34.7 % (36.0-46.0); HGB 9.8 g/dL (11.2-15.7); Immature Grans % 0.6 %; MCH 20.9 pg (27.0-33.0); MCHC 28.2 % (32.0-36.0); MCV 74 fL (80-95); MPV 9.0 fL (8.0-11.0); Platelet Count 583 10^3/uL (130-400); RBC 4.68 10^6/uL (3.93-5.22); RDW 20.2 % (11.7-14.6); RDW-SD 53.7 fL; WBC 8.58 10^3/uL (4.4-10.8)
[2025-04-11 10:48] LABS: ALT 16 U/L (14-59); AST 15 U/L (15-37); Albumin 3.0 g/dL (3.4-5.0); Alkaline Phosphatase 152 U/L (46-116); Anion Gap 7.4 mmol/L (3-11); BUN 19 mg/dL (7-18); Bilirubin, Total 0.4 mg/dL (0.2-1.0); CO2 27.6 mmol/L (21.0-32.0); Calcium 9.1 mg/dL (8.5-10.1); Chloride 103 mmol/L (98-107); Estimated GFR 58.02 (mL/min/1.73m2); Glucose 82 mg/dL (74-106); Potassium 4.0 mmol/L (3.5-5.1); Sodium 138 mmol/L (136-145); Total Protein 6.9 g/dL (6.4-8.2)
[2025-04-11 10:50] LABS: Anisocytosis 2+; Microcytosis 2+
[2025-04-11 10:51] LABS: Poikilocytes 1+
== END 2025-04-11 09:15 | disposition home or self-care (01) ==
PROVIDERS: Visit Provider Nurse Practitioner Family
DX: C90.02 Multiple myeloma in relapse (principal)
CPT/HCPCS: 36415; 80053; 85025

== ENCOUNTER 2025-04-25 14:55 | Outpatient (CLI) | payer MEDICARE, SELFPAY ==
[2025-04-25 12:18] LABS: Abs Immature Grans 0.02 10^3/uL (0.0-0.06); HCT 32.8 % (36.0-46.0); HGB 9.3 g/dL (11.2-15.7); Immature Grans % 0.3 %; MCH 20.7 pg (27.0-33.0); MCHC 28.4 % (32.0-36.0); MCV 73 fL (80-95); MPV 8.7 fL (8.0-11.0); Platelet Count 491 10^3/uL (130-400); RBC 4.49 10^6/uL (3.93-5.22); RDW 19.6 % (11.7-14.6); RDW-SD 51.8 fL; WBC 6.58 10^3/uL (4.4-10.8)
[2025-04-25 12:31] LABS: Hypochromasia 1+; Microcytosis 2+; Poikilocytes 1+
[2025-04-25 12:40] LABS: ALT 16 U/L (14-59); AST 15 U/L (15-37); Albumin 3.1 g/dL (3.4-5.0); Alkaline Phosphatase 154 U/L (46-116); Anion Gap 8.5 mmol/L (3-11); BUN 24 mg/dL (7-18); Bilirubin, Total 0.3 mg/dL (0.2-1.0); CO2 27.5 mmol/L (21.0-32.0); Calcium 9.3 mg/dL (8.5-10.1); Chloride 102 mmol/L (98-107); Estimated GFR 65.84 (mL/min/1.73m2); Glucose 85 mg/dL (74-106); Potassium 4.6 mmol/L (3.5-5.1); Sodium 138 mmol/L (136-145); Total Protein 7.0 g/dL (6.4-8.2)
== END 2025-04-25 14:56 | disposition home or self-care (01) ==
LOC: LBO 14:55
PROVIDERS: Visit Provider Nurse Practitioner Family
DX: C90.02 Multiple myeloma in relapse (principal)
CPT/HCPCS: 36415; 80053; 85025

== ENCOUNTER 2025-05-09 04:05 | Outpatient (CLI) | payer MEDICARE, SELFPAY ==
[2025-05-09 07:52] LABS: Abs Immature Grans 0.03 10^3/uL (0.0-0.06); HCT 32.4 % (36.0-46.0); HGB 9.3 g/dL (11.2-15.7); Immature Grans % 0.5 %; MCH 20.5 pg (27.0-33.0); MCHC 28.7 % (32.0-36.0); MCV 72 fL (80-95); MPV 8.3 fL (8.0-11.0); Platelet Count 427 10^3/uL (130-400); RBC 4.53 10^6/uL (3.93-5.22); RDW 19.0 % (11.7-14.6); RDW-SD 48.4 fL; WBC 5.46 10^3/uL (4.4-10.8)
[2025-05-09 08:08] LABS: ALT 19 U/L (14-59); AST 13 U/L (15-37); Albumin 2.9 g/dL (3.4-5.0); Alkaline Phosphatase 145 U/L (46-116); Anion Gap 9.3 mmol/L (3-11); BUN 18 mg/dL (7-18); Bilirubin, Total 0.3 mg/dL (0.2-1.0); CO2 26.7 mmol/L (21.0-32.0); Calcium 8.6 mg/dL (8.5-10.1); Chloride 102 mmol/L (98-107); Estimated GFR 58.02 (mL/min/1.73m2); Glucose 95 mg/dL (74-106); Potassium 4.1 mmol/L (3.5-5.1); Sodium 138 mmol/L (136-145); Total Protein 6.5 g/dL (6.4-8.2)
[2025-05-10 08:56] LABS: Kappa Free Light Chain 4.41 mg/dL (0.33-1.94); Lambda Free Light Chain 0.57 mg/dL (0.57-2.63)
[2025-05-11 15:11] LABS: Albumin 53.2 % (55.8-66.1); Albumin g/dL 2.9 g/dL (3.6-5.2); Alpha 1 g/dL 0.50 g/dL (0.15-0.40); Alpha 2 g/dL 1.00 g/dL (0.50-1.00); Beta g/dL 0.70 g/dL (0.60-1.20); Gamma g/dL 0.40 g/dL (0.60-1.60); Total Protein 5.5 g/dL (6.3-8.2)
== END 2025-05-09 04:06 | disposition home or self-care (01) ==
LOC: LBO 04:05
PROVIDERS: Visit Provider Internal Medicine Hematology & Oncology
DX: C90.00 Multiple myeloma not having achieved remission (principal)
CPT/HCPCS: 36415; 80053; 82784; 83883; 84165; 85025; 86320

== ENCOUNTER 2025-05-23 03:55 | Outpatient (CLI) | payer MEDICARE, SELFPAY ==
[2025-05-23 09:21] LABS: Abs Immature Grans 0.01 10^3/uL (0.0-0.06); HCT 36.9 % (36.0-46.0); HGB 10.6 g/dL (11.2-15.7); Immature Grans % 0.2 %; MCH 20.7 pg (27.0-33.0); MCHC 28.7 % (32.0-36.0); MCV 72 fL (80-95); MPV 8.3 fL (8.0-11.0); Platelet Count 468 10^3/uL (130-400); RBC 5.13 10^6/uL (3.93-5.22); RDW 18.9 % (11.7-14.6); RDW-SD 48.2 fL; WBC 6.16 10^3/uL (4.4-10.8)
[2025-05-23 09:38] LABS: ALT 17 U/L (14-59); AST 17 U/L (15-37); Albumin 3.3 g/dL (3.4-5.0); Alkaline Phosphatase 173 U/L (46-116); Anion Gap 7.3 mmol/L (3-11); BUN 19 mg/dL (7-18); Bilirubin, Total 0.4 mg/dL (0.2-1.0); CO2 28.7 mmol/L (21.0-32.0); Calcium 8.9 mg/dL (8.5-10.1); Chloride 100 mmol/L (98-107); Estimated GFR 58.02 (mL/min/1.73m2); Glucose 100 mg/dL (74-106); Potassium 4.2 mmol/L (3.5-5.1); Sodium 136 mmol/L (136-145); Total Protein 6.9 g/dL (6.4-8.2)
[2025-05-23 11:13] LABS: Ferritin 58 ng/mL (8-252)
== END 2025-05-23 03:56 | disposition home or self-care (01) ==
LOC: LBO 03:56
PROVIDERS: Nurse Practitioner Family; Visit Provider Student in an Organized Health Care Education/Training Program
DX: C90.02 Multiple myeloma in relapse (principal)
CPT/HCPCS: 36415; 80053; 82728; 85025

== ENCOUNTER 2025-06-06 09:19 | Outpatient (CLI) | payer MEDICARE, SELFPAY ==
[2025-06-06 08:07] LABS: Abs Immature Grans 0.03 10^3/uL (0.0-0.06); HCT 34.3 % (36.0-46.0); HGB 9.8 g/dL (11.2-15.7); Immature Grans % 0.4 %; MCH 20.1 pg (27.0-33.0); MCHC 28.6 % (32.0-36.0); MCV 70 fL (80-95); MPV 8.0 fL (8.0-11.0); Platelet Count 427 10^3/uL (130-400); RBC 4.87 10^6/uL (3.93-5.22); RDW 18.9 % (11.7-14.6); RDW-SD 46.9 fL; WBC 7.88 10^3/uL (4.4-10.8)
[2025-06-06 08:19] LABS: Hypochromasia 2+; Microcytosis 2+
[2025-06-06 08:23] LABS: ALT 19 U/L (14-59); AST 16 U/L (15-37); Albumin 3.3 g/dL (3.4-5.0); Alkaline Phosphatase 148 U/L (46-116); Anion Gap 7.8 mmol/L (3-11); BUN 23 mg/dL (7-18); Bilirubin, Total 0.4 mg/dL (0.2-1.0); CO2 29.2 mmol/L (21.0-32.0); Calcium 9.1 mg/dL (8.5-10.1); Chloride 102 mmol/L (98-107); Estimated GFR 46.62 (mL/min/1.73m2); Glucose 90 mg/dL (74-106); LDH 203 U/L (81-234); Potassium 4.9 mmol/L (3.5-5.1); Sodium 139 mmol/L (136-145); Total Protein 7.4 g/dL (6.4-8.2)
[2025-06-07 09:30] LABS: Kappa Free Light Chain 11.26 mg/dL (0.33-1.94); Lambda Free Light Chain 0.69 mg/dL (0.57-2.63)
[2025-06-07 15:15] LABS: Albumin 54.2 % (55.8-66.1); Albumin g/dL 3.4 g/dL (3.6-5.2); Alpha 1 g/dL 0.50 g/dL (0.15-0.40); Alpha 2 g/dL 1.10 g/dL (0.50-1.00); Beta g/dL 0.90 g/dL (0.60-1.20); Gamma g/dL 0.40 g/dL (0.60-1.60); Total Protein 6.3 g/dL (6.3-8.2)
== END 2025-06-06 09:20 | disposition home or self-care (01) ==
LOC: LBO 09:20
PROVIDERS: Visit Provider Student in an Organized Health Care Education/Training Program
DX: C90.02 Multiple myeloma in relapse (principal)
CPT/HCPCS: 36415; 80053; 82784; 83615; 83883; 84165; 85025; 86320

== ENCOUNTER 2025-06-20 03:10 | Outpatient (CLI) | payer MEDICARE, SELFPAY ==
[2025-06-20 08:08] LABS: Abs Immature Grans 0.03 10^3/uL (0.0-0.06); HCT 33.6 % (36.0-46.0); HGB 9.5 g/dL (11.2-15.7); Immature Grans % 0.4 %; MCH 19.7 pg (27.0-33.0); MCHC 28.3 % (32.0-36.0); MCV 70 fL (80-95); MPV 8.4 fL (8.0-11.0); Platelet Count 458 10^3/uL (130-400); RBC 4.83 10^6/uL (3.93-5.22); RDW 19.5 % (11.7-14.6); RDW-SD 47.7 fL; WBC 7.28 10^3/uL (4.4-10.8)
[2025-06-20 08:23] LABS: ALT 20 U/L (14-59); AST 15 U/L (15-37); Albumin 2.8 g/dL (3.4-5.0); Alkaline Phosphatase 123 U/L (46-116); Anion Gap 8.5 mmol/L (3-11); BUN 14 mg/dL (7-18); Bilirubin, Total 0.5 mg/dL (0.2-1.0); CO2 26.5 mmol/L (21.0-32.0); Calcium 8.5 mg/dL (8.5-10.1); Chloride 103 mmol/L (98-107); Glucose 113 mg/dL (74-106); Hypochromasia 2+; LDH 203 U/L (81-234); Microcytosis 2+; Potassium 4.1 mmol/L (3.5-5.1); Sodium 138 mmol/L (136-145); Total Protein 6.8 g/dL (6.4-8.2)
[2025-06-20 10:06] LABS: Ferritin 106 ng/mL (8-252)
[2025-06-21 10:22] LABS: Kappa Free Light Chain 16.40 mg/dL (0.33-1.94); Lambda Free Light Chain 0.73 mg/dL (0.57-2.63)
[2025-06-21 15:32] LABS: Albumin 51.3 % (55.8-66.1); Albumin g/dL 3.1 g/dL (3.6-5.2); Alpha 1 g/dL 0.60 g/dL (0.15-0.40); Alpha 2 g/dL 1.10 g/dL (0.50-1.00); Beta g/dL 0.90 g/dL (0.60-1.20); Gamma g/dL 0.40 g/dL (0.60-1.60); Total Protein 6.1 g/dL (6.3-8.2)
== END 2025-06-20 03:11 | disposition home or self-care (01) ==
LOC: LBO 03:11
PROVIDERS: Nurse Practitioner Family; Visit Provider Student in an Organized Health Care Education/Training Program
DX: C90.02 Multiple myeloma in relapse (principal); D64.9 Anemia, unspecified
CPT/HCPCS: 36415; 80053; 82784; 82728; 83615; 83883; 84165; 85025; 86320

== ENCOUNTER 2025-07-04 08:05 | Outpatient (CLI) | payer MEDICARE, SELFPAY ==
[2025-07-04 08:30] LABS: Abs Immature Grans 0.02 10^3/uL (0.0-0.06); HCT 31.0 % (36.0-46.0); HGB 8.9 g/dL (11.2-15.7); Immature Grans % 0.3 %; MCH 20.2 pg (27.0-33.0); MCHC 28.7 % (32.0-36.0); MCV 70 fL (80-95); MPV 8.7 fL (8.0-11.0); Platelet Count 393 10^3/uL (130-400); RBC 4.41 10^6/uL (3.93-5.22); RDW 19.4 % (11.7-14.6); RDW-SD 48.2 fL; WBC 7.01 10^3/uL (4.4-10.8)
[2025-07-04 08:48] LABS: LDH 179 U/L (120-246)
[2025-07-04 08:50] LABS: ALT 14 U/L (10-49); AST 18 U/L (<34); Albumin 4.2 g/dL (3.4-5.0); Alkaline Phosphatase 122 U/L (46-116); Anion Gap 9.7 mmol/L (3-11); BUN 17 mg/dL (9-23); Bilirubin, Total 0.40 mg/dL (0.2-1.2); CO2 28.3 mmol/L (20.0-31.0); Calcium 8.8 mg/dL (8.3-10.6); Chloride 105 mmol/L (98-107); Glucose 87 mg/dL (74-106); Potassium 4.1 mmol/L (3.5-5.1); Sodium 143 mmol/L (136-145); Total Protein 6.5 g/dL (5.7-8.2)
[2025-07-04 08:52] LABS: Anisocytosis 1+; Microcytosis 2+; Polychromasia Present
[2025-07-05 09:39] LABS: Kappa Free Light Chain 24.72 mg/dL (0.33-1.94); Lambda Free Light Chain 0.69 mg/dL (0.57-2.63)
[2025-07-05 15:42] LABS: Albumin 52.8 % (55.8-66.1); Albumin g/dL 3.3 g/dL (3.6-5.2); Alpha 1 g/dL 0.50 g/dL (0.15-0.40); Alpha 2 g/dL 1.10 g/dL (0.50-1.00); Beta g/dL 1.00 g/dL (0.60-1.20); Gamma g/dL 0.40 g/dL (0.60-1.60); Total Protein 6.3 g/dL (6.3-8.2)
== END 2025-07-04 08:06 | disposition home or self-care (01) ==
LOC: LBO 08:06
PROVIDERS: Visit Provider Student in an Organized Health Care Education/Training Program
DX: C90.02 Multiple myeloma in relapse (principal)
CPT/HCPCS: 36415; 80053; 82784; 83615; 83883; 84165; 85025; 86320